=== PATIENT | female | born 1940 | race Caucasian/White ===

== ENCOUNTER → 2020-01-26 | Outpatient (CLI) | payer OTHER, SELFPAY ==
[2020-01-26 15:20] LABS: Absolute Lymphocyte Count 2.29 X10^3/uL (0.83-4.51); Absolute Neutrophil Count 4.2 X10^3/uL (2.0-7.7); Basophil# 0.05 X10^3/uL; Basophil% 0.7 % (0-1); Eosinophil# 0.25 X10^3/uL; Eosinophils% 3.3 % (0-5); Hematocrit 36.4 % (37-47); Hemoglobin 11.9 g/dL (12.0-15.0); Lymphocyte # 2.29 X10^3/ul (4.0); Lymphocyte % 30.4 % (19-41); Mean Corp Hgb Conc 32.7 g/dL (32-36); Mean Corpuscular Hgb 31.2 pg (27.0-32.0); Mean Corpuscular Volume 95.5 fL (81-99); Mean Platelet Vol. 9.2 fl (6.2-12.0); Monocyte# 0.69 X10^3/uL; Monocyte% 9.2 % (0-10); NRBC Flagged by Analyzer 0 % (0-5); Neutrophil # 4.22 X10^3/uL (2.7-7.7); Platelet Count 378 K/mm3 (150-450); RBC Distribution Width SD 48.9 fl (35.1-43.9); Red Blood Count 3.81 M/mm3 (4.2-5.4); White Blood Count 7.5 K/mm3 (4.4-11.0)
[2020-01-26 15:58] LABS: ALB/GLOB Ratio 0.8 RATIO (0.9-2.4); AST(SGOT) 16 U/L (15-37); Alanine Aminotransfer ALT/SGPT 21 U/L (13-56); Albumin, Serum 3.3 g/dL (3.2-5.0); Alkaline Phosphatase 44 U/L (45-117); Anion Gap 7 (5-15); BUN 16 mg/dL (7-18); BUN/Creat Ratio 20.1 RATIO (10-20); Chloride 100 mmol/L (98-107); EST Glomerular Filtration Rate 73 mL/min (>60); Est Glom Filt Rate - Afr Amer 89 mL/min (>60); Globulin 4.4 g/dL (2.2-4.2); Glucose 87 mg/dL (74-106); Potassium 4.2 mmol/L (3.5-5.1); Protein, Total 7.7 g/dL (6.4-8.2); Sodium Level 137 mmol/L (136-145); Thyroid Stim Hormone (TSH) 1.45 uIU/mL (0.358-3.74)
[2020-01-28 09:40] LABS: Myoglobin, Serum 29 ng/mL (25-58)
[2020-01-28 16:08] LABS: Creatine Kinase MB 0 % (0-3); Creatine Kinase MM 100 % (97-100); Macro I 0 % (Not Observed); Macro II 0 % (Not Observed)
[2020-01-28 17:49] LABS: Creatine Kinase BB 0 % (0); Creatine Kinase,Total,Serum 42 U/L (26-161)
== END | disposition home or self-care (01) ==
LOC: LABSPEC 15:11
PROVIDERS: PCP Internal Medicine; Referring Provider Nurse Practitioner; Visit Provider Nurse Practitioner
DX: I10 Essential (primary) hypertension (principal)
CPT/HCPCS: 80053; 82550; 82552; 83874; 84443; 84484; 85025

== ENCOUNTER 2020-01-27 16:41 | Emergency (ER) | payer OTHER, SELFPAY ==
[2020-01-27 16:43] VITALS: BP 151/64; PULSE 70; RESP 15; TEMP 36.6; O2SAT 97; BMI 27.3
--- NOTE | 2020-01-27 17:05 | CT_ITS ---
STUDY: CT BRAIN WITHOUT CONTRAST REASON FOR EXAM: Female, 79 years old. PT STATED HEADACHE TODAY RADIATION DOSAGE (If Supplied By Facility): CTDIvol = ( 44.99 ) mGy, DLP = ( 762.36 ) mGycm TECHNIQUE: Transaxial CT imaging of the brain was performed without administration of intravenous contrast material. Individualized dose optimization techniques were used for this CT. COMPARISON: No relevant priors. FINDINGS: Normal soft tissue structures. Normal calvarium. There is moderate cerebral atrophy with widening of the extra-axial spaces and ventricular dilatation. There are areas of decreased attenuation within the white matter tracts of the supratentorial brain, consistent with microvascular disease changes. Normal basal ganglia and thalami. Normal brainstem. Normal cerebellum. There is no intracranial hemorrhage. There are no findings of an acute ischemic infarction. There is mucoperiosteal inflammatory disease of the paranasal sinuses consistent with mild chronic sinusitis. CT/Brain/Head without Contrast IMPRESSION: Chronic involutional changes of the brain. Electronically Signed: Cameron Jones MD at 17:56 EDT , Service support ,
--- NOTE | 2020-01-27 17:09 | ED.VIS.GEN ---
History of Present Illness Chief Complaint: Hypertension Informant: Patient Narrative: Patient presents the emergency department elevated blood pressure and headache. Patient states for about 1 week she has had a frontal headache. She knows that her blood pressure has been up and down. She states that yesterday she was seen by her primary care physician and her lisinopril was increased to 40 mg a day. She states there was an EKG performed yesterday that she states was fine. She took that dose this morning. She states that they called her today and she states her blood pressure continued to be around 200 so they decided to send her to the emergency room. No chest pain or shortness of breath. No leg swelling. In addition to lisinopril she also takes propranolol 60 mg daily. Past Medical History - Allergies and Home Meds Allergies/Adverse Reactions: Allergies Penicillins [PCN] Allergy (Verified 01/27/20 16:42) Hives Primary Care Physician: Nanci Mead DO [Primary Care Provider] - (Call the office tomorrow.) Surgical History: - - BL vein LE stripping, hysterectomy, T+A. Smoking Status: Never smoker - Family History Maternal Family History: Reports: Heart Disease, Hypertension Paternal Family History: Reports: No pertinent history Review of Systems General: Denies: Chills, Fever, Sweats Eyes: Denies: Visual changes - bilaterally, Diplopia ENT: Denies: Rhinorrhea, Sore throat Cardiovascular: Denies: Chest pain, Palpitations Respiratory: Denies: Dyspnea, Cough, Dyspnea on exertion Gastrointestinal: Denies: Abdominal pain, Nausea, Vomiting, Diarrhea, Melena, Hematochezia Genitourinary: Denies: Dysuria, Hematuria, Frequency Musculoskeletal: Denies: Back pain, Extremity Pain Skin: Denies: Rash, Wounds Neurological: Reports: Headache. Denies: Weakness, Numbness Physical Exam Vital Signs/Narrative: Vital Signs Temp Pulse Resp BP Pulse Ox 01/27/20 16:43 97.9 F 70 15 151/64 H 97 General: Well nourished, Well developed, No Acute Distress Head: Normocephalic, Atraumatic Eyes: Perrl, EOMI ENT: Moist mucous membranes, No rhinorrhea Neck: Supple, Nontender Cardiovascular: Regular rate, Regular rhythm, No murmurs Respiratory: No distress, CTA bilaterally, Chest nontender Abdomen: Soft, Nontender, Nondistended, Normal bowel sounds Back: Nontender, Normal Inspection Extremities: Nontender, No edema Skin: Normal color, No rash Neurological: Alert, Oriented x3, Cranial nerves II-XII grossly intact, Normal Strength, Normal Sensation Psychological: Normal affect, Normal Mood ED Disposition - Plan for ED Patient: Disposition: Home or Assisted Living Diagnosis: Accelerated hypertension Instructions: ED High Blood Pressure Established Out of Control Prescriptions: Amlodipine [Norvasc] 5 mg PO DAILY #30 tab Transmission Status: Received by [facility] Amlodipine [Norvasc] 5 mg PO DAILY #30 tab Transmission Status: Received by [facility] Referrals: Nanci Mead DO [Primary Care Provider] - (Call the office tomorrow.)
[2020-01-27 17:16] VITALS: BP 196/86
[2020-01-27] MEDS: Acetaminophen 500 MG Tablet 1000 MG PO (17:19)
[2020-01-27 17:34] VITALS: BP 170/90
[2020-01-27 17:50] LABS: Absolute Lymphocyte Count 2.59 X10^3/uL (0.83-4.51); Absolute Neutrophil Count 5.5 X10^3/uL (2.0-7.7); Basophil# 0.05 X10^3/uL; Basophil% 0.6 % (0-1); Eosinophil# 0.17 X10^3/uL; Eosinophils% 1.9 % (0-5); Hematocrit 36.6 % (37-47); Hemoglobin 11.7 g/dL (12.0-15.0); Lymphocyte # 2.59 X10^3/ul (4.0); Lymphocyte % 28.9 % (19-41); Mean Corpuscular Hgb 30.4 pg (27.0-32.0); Mean Corpuscular Volume 95.1 fL (81-99); Monocyte# 0.67 X10^3/uL; Monocyte% 7.5 % (0-10); NRBC Flagged by Analyzer 0 % (0-5); Neutrophil # 5.47 X10^3/uL (2.7-7.7); Platelet Count 371 K/mm3 (150-450); RBC Distribution Width CV 14.2 % (11.6-14.6); RBC Distribution Width SD 49.2 fl (35.1-43.9); Red Blood Count 3.85 M/mm3 (4.2-5.4)
[2020-01-27 18:07] LABS: Anion Gap 10 (5-15); BUN 22 mg/dL (7-18); BUN/Creat Ratio 26.3 RATIO (10-20); Calcium,Total 9.2 mg/dL (8.5-10.1); Chloride 100 mmol/L (98-107); Creatinine, Serum 0.84 mg/dL (0.55-1.02); EST Glomerular Filtration Rate 70 mL/min (>60); Est Glom Filt Rate - Afr Amer 84 mL/min (>60); Estimated Creatinine Clearance 51.08 ml/min; Glucose 101 mg/dL (74-106); Potassium 4.3 mmol/L (3.5-5.1); Sodium Level 137 mmol/L (136-145)
[2020-01-27 18:17] VITALS: BP 180/78; PULSE 68; RESP 16; O2SAT 97
[2020-01-27 19:01] VITALS: BP 191/84; PULSE 64; RESP 18; O2SAT 97
[2020-01-27] MEDS: amLODIPine 5 MG Tablet PO (19:16)
== END 2020-01-27 19:43 | disposition home or self-care (01) ==
PROVIDERS: Emergency Provider Emergency Medicine; PCP Internal Medicine
DX: I10 Essential (primary) hypertension (principal); Z79.899 Other long term (current) drug therapy
CPT/HCPCS: 70450; 80048; 85025; 99285

== ENCOUNTER 2021-08-15 13:25 | Observation (INO) | payer OTHER, SELFPAY ==
[2021-08-15 13:26] VITALS: BP 192/121; PULSE 88; RESP 20; TEMP 36.8; O2SAT 99; BMI 31.4
--- NOTE | 2021-08-15 13:29 | ED.RN ---
WHEN GOING BACK TO THE ROOM PT STATES MY HEAD FEELS WOOZY. THAT JUST STARTED THIS MORNING
[2021-08-15 13:34] VITALS: BMI 32.1
--- NOTE | 2021-08-15 14:15 | EKG12_ITS ---
Test Reason : Blood Pressure : / mmHG Vent. Rate : 073 BPM Atrial Rate : 073 BPM P-R Int : 156 ms QRS Dur : 092 ms QT Int : 390 ms P-R-T Axes : 000 032 053 degrees QTc Int : 429 ms Normal sinus rhythm Normal ECG Confirmed by ZOE GARCIA, CAS ([id number]), news copy editor TREASURE JETT ([id number]) on 08/17/2021 9:55:14 AM Referred By: CHAYO Confirmed By:CAS ENRIQUEZ MD
--- NOTE | 2021-08-15 14:15 | CT_ITS ---
STUDY: CT BRAIN WITHOUT CONTRAST REASON FOR EXAM: Female, 80 years old. Headache, HTN -- TIA symptoms 08/12 RADIATION DOSAGE (If Supplied By Facility): CTDIvol = ( 44.99 ) mGy, DLP = ( 779.24 ) mGycm TECHNIQUE: Transaxial CT imaging of the brain was performed without administration of intravenous contrast material. Individualized dose optimization techniques were used for this CT. COMPARISON: Comparison is made with prior study dated 01/27/2020. FINDINGS: Normal soft tissue structures. Normal calvarium. There is moderate cerebral atrophy with widening of the extra-axial spaces and ventricular dilatation. There are areas of decreased attenuation within the white matter tracts of the supratentorial brain, consistent with microvascular disease changes. Normal basal ganglia and thalami. Normal brainstem. Normal cerebellum. There is no intracranial hemorrhage. There are no findings of an acute ischemic infarction. Atherosclerotic plaque formation of the cavernous portions of the internal carotid arteries bilaterally. Partial opacification of the anterior aspect of the ethmoid sinuses likely more prominent on the left side. CT/Brain/Head without Contrast IMPRESSION: Chronic involutional changes of the brain. Electronically Signed: Juan Manuel Olivas MD at 15:30 EST , Service support ,
--- NOTE | 2021-08-15 14:16 | EX.ED.DYSGE1 ---
HPI History of Present Illness Chief Complaint: Neuro S/Sx Informant: patient Onset/Context/Timing Onset: Days Narrative Narrative: Patient presents today secondary to hypertension and headache. She states symptoms for concerned her started on Sunday, the . While lying in bed reading a book she had a sudden onset of headache followed by left-sided weakness, paresthesias, slurred speech. Those symptoms lasted about 15 minutes and spontaneously resolved. Her blood pressures remained elevated throughout the weekend and if the member told her to take twice her normal dose of propranolol to help with her blood pressure. She states she woke this morning with a worsened headache and blood pressure was noted to be significantly elevated. [facility] Medical History Diabetes mellitus, type II HLD (hyperlipidemia) Hypertension Home Medications aspirin 81 mg PO DAILY@0800 tab.chew 01/24/17 [Rx Last Taken Unknown] calcium carbonate [Oyster Shell Calcium 500] 1,000 mg PO DAILY@0800 tab 01/24/17 [Rx Last Taken Unknown] cholecalciferol (vitamin D3) [Vitamin D3] 1,000 unit PO DAILYCM tab 01/24/17 [Rx Last Taken Unknown] donepezil 5 mg PO QHS tab 01/24/17 [Rx Last Taken Unknown] duloxetine 60 mg PO DAILY 30 Days 01/24/17 [Rx Last Taken Unknown] propranolol 60 mg PO DAILY capsule 01/24/17 [Rx Last Taken Unknown] amlodipine 5 mg PO DAILY #30 tab 01/27/20 [Rx Last Taken Unknown] amlodipine 5 mg PO DAILY #30 tab 01/27/20 [Rx Last Taken Unknown] ibuprofen 200 mg PO DAILY 01/27/20 [History Last Taken Unknown] lisinopril 40 mg PO DAILY 01/27/20 [History Last Taken Unknown] metformin 1,000 mg PO BIDCM 01/27/20 [History Last Taken Unknown] nortriptyline 50 mg PO QHS 01/27/20 [History Last Taken Unknown] Allergy/AdvReac Type Severity Reaction Status Date / Time Penicillins [PCN] Allergy Hives Verified 08/15/21 13:31 Social History Smoking Status: Never smoker ROS ROS ED Constitutional Constitutional ED: Denies chills or fever(s) Eyes Eyes: Denies change in vision ENT ENT ED: Denies sore throat Cardiovascular Cardiovascular: Denies chest pain Respiratory/Chest Respiratory/Chest: Denies cough or dyspnea Gastrointestinal Gastrointestinal: Denies abdominal pain, diarrhea, nausea or vomiting Genitourinary Genitourinary ED: Denies dysuria Musculoskeletal Musculoskeletal: Denies back pain or neck pain Integumentary Denies rash Neurologic Neurologic: Reports headache(s) and other Details: Weakness and paresthesias present on 08/12, none today Psychiatric Psychiatric: Denies anxiety or depression Allergic/Immunologic Allergic/Immunologic ED: Denies urticaria EXAM Physical Exam Const Vital Signs: 08/15/21 13:26 Temperature 98.3 F Temperature Source Temporal Pulse Rate 88 Respiratory Rate 20 H Blood Pressure 192/121 H Blood Pressure Mean 144 Pulse Ox 99 Oxygen Delivery Method Room Air Positive well nourished and well developed General Appearance ED: well developed HEENT Reports moist mucous membranes Eyes PERRL and EOMs intact bilaterally Neck supple Chest Wall inspection of chest normal and palpation of chest normal Resp normal respiratory effort and clear to auscultation bilaterally Cardio regular rate and regular rhythm GI normal to inspection, nondistended, normoactive bowel sounds and non-tender Palpation: soft Extremity normal to inspection Neuro oriented x3, CN's II-XII intact bilaterally and no sensory deficits noted Neuro Narrative: NIH equals 0 Sensorium / Orientation: alert Motor Exam: strength 5/5 throughout Skin no rashes or lesions noted MDM MDM MDM Narrative Medical decision making narrative: Lab work, EKG, head CT obtained Lab Data Attestation: I reviewed the patient's lab results. Labs: Laboratory Results - last 24 hr 08/15/21 08/15/21 08/15/21 13:40 13:40 13:40 WBC 8.3 RBC 3.86 L Hgb 11.8 L Hct 35.9 L MCV 93.0 MCH 30.6 MCHC 32.9 RDW Std Deviation 47.4 H RDW Coeff of Maylin 13.9 Plt Count 372 MPV 9.2 Immature Gran % (Auto) 0.400 Neut % (Auto) 55.2 Lymph % (Auto) 30.6 [place] % (Auto) 10.3 H Eos % (Auto) 2.9 Baso % (Auto) 0.6 Absolute Neuts (auto) 4.6 Absolute Lymphs (auto) 2.54 Nucleated RBC % 0 PT 12.1 INR 1.0 APTT 27.5 Sodium 134 L Potassium 4.4 Chloride 99 Carbon Dioxide 28.0 Anion Gap 7 BUN 21 H Creatinine 0.83 Estim Creat Clear Calc 48.92 Est GFR (MDRD) Af Amer 84 Est GFR (MDRD) Non-Af 70 BUN/Creatinine Ratio 25.2 H Glucose 94 Calcium 8.9 Radiography Chest X-Ray - ED: 1 View, Read by ED Physician and Chronic Changes Diagnostic Testing: Clinical Impression(s) from Imaging Studies Brain CT 08/15/21 14:15 IMPRESSION: Chronic involutional changes of the brain. Electronically Signed: Juan Manuel Olivas MD at 15:30 EST , Service support , Chest X-Ray 08/15/21 14:55 IMPRESSION: No acute abnormality is seen. Electronically Signed: Juan Manuel Olivas MD at 15:15 EST , Service support , EKG Initial EKG: Attestation: I personally reviewed and interpreted this EKG as follows: Interpretation: Sinus Rhythm (Sinus at 73 with no acute ischemia.) Treatment and Re-Evaluation Comments:: Patient's initial blood pressure is 191/121. Repeat pressure is 166/88. Patient is given Tylenol for headache. Lab work reviewed and largely unremarkable. Chest x-ray clear. Head CT reveals no acute findings. Patient certainly sounds like she had a significant TIA 2 days ago. I think she would benefit from observation overnight for stabilization of her blood pressure as well as MRI and any stroke factor risk modification that we could offer. She is in agreement with this plan. I will speak with hospitalist. Discharge Plan Triage Chief Complaint: Neuro S/Sx ED Provider: Tg Adrian Dx/Rx/DC Orders Clinical Impression: Hypertension, Brain TIA Prescriptions: No Action donepezil 5 MG tablet 5 mg PO QHS RF: 0 propranolol 60 MG capsule 60 mg PO DAILY RF: 0 calcium carbonate [Oyster Shell Calcium 500] 500 MG tablet 1,000 mg PO DAILY@0800 RF: 0 aspirin 81 MG Tab.Chew 81 mg PO DAILY@0800 RF: 0 cholecalciferol (vitamin D3) [Vitamin D3] 1,000 UNIT tablet 1,000 unit PO DAILYCM RF: 0 duloxetine 60 MG capsule 60 mg PO DAILY 30 Days RF: 0 ibuprofen 200 MG capsule 200 mg PO DAILY RF: 0 nortriptyline 50 MG capsule 50 mg PO QHS RF: 0 metformin 500 MG tablet 1,000 mg PO BIDCM RF: 0 lisinopril 20 MG tablet 40 mg PO DAILY RF: 0 amlodipine 5 MG tablet 5 mg PO DAILY Qty: 30 RF: 0 amlodipine 5 MG tablet 5 mg PO DAILY Qty: 30 RF: 0 Primary Care Provider: Nanci Mead Referrals: Nanci Mead DO [Primary Care Provider] - Disposition Disposition: Acute Care Hospital [facility]
[2021-08-15 14:27] LABS: Absolute Lymphocyte Count 2.54 X10^3/uL (0.83-4.51); Absolute Neutrophil Count 4.6 X10^3/uL (2.0-7.7); Basophil# 0.05 X10^3/uL; Basophil% 0.6 % (0-1); Eosinophil# 0.24 X10^3/uL; Eosinophils% 2.9 % (0-5); Hematocrit 35.9 % (37-47); Hemoglobin 11.8 g/dL (12.0-15.0); Lymphocyte # 2.54 X10^3/ul (0.83-4.51); Lymphocyte % 30.6 % (19-41); Mean Corp Hgb Conc 32.9 g/dL (32-36); Mean Corpuscular Hgb 30.6 pg (27.0-32.0); Mean Platelet Vol. 9.2 fl (6.2-12.0); Monocyte# 0.85 X10^3/uL; Monocyte% 10.3 % (0-10); NRBC Flagged by Analyzer 0 % (0-5); Neutrophil # 4.58 X10^3/uL (2.7-7.7); Neutrophil % 55.2 % (47-70); Platelet Count 372 K/mm3 (150-450); RBC Distribution Width CV 13.9 % (11.6-14.6); RBC Distribution Width SD 47.4 fl (35.1-43.9); Red Blood Count 3.86 M/mm3 (4.2-5.4); White Blood Count 8.3 K/mm3 (4.4-11.0)
[2021-08-15 14:33] LABS: Anion Gap 7 (5-15); BUN 21 mg/dL (7-18); BUN/Creat Ratio 25.2 RATIO (10-20); Calcium,Total 8.9 mg/dL (8.5-10.1); Chloride 99 mmol/L (98-107); Creatinine, Serum 0.83 mg/dL (0.55-1.02); EST Glomerular Filtration Rate 70 mL/min (>60); Est Glom Filt Rate - Afr Amer 84 mL/min (>60); Estimated Creatinine Clearance 48.92 ml/min; Glucose 94 mg/dL (74-106); Partial Thromboplast Time 27.5 Seconds (24.1-36.2); Potassium 4.4 mmol/L (3.5-5.1); Prothrombin Time (Protime)PT. 12.1 SECONDS (11.7-14.9); Sodium Level 134 mmol/L (136-145)
--- NOTE | 2021-08-15 14:55 | RAD_ITS ---
STUDY: X-RAY CHEST REASON FOR EXAM: Female, 80 years old. CP TECHNIQUE: Single AP portable view of the chest. COMPARISON: Comparison is made with prior study dated 01/16/2017. FINDINGS: EKG electrodes are seen. The lungs are clear and expanded. There is no demonstrated pleural abnormality. Normal size heart. Calcified right paratracheal lymph nodes. Normal visualized pulmonary arteries. There is atherosclerotic calcification of the aortic arch with tortuosity. There are diffuse degenerative changes of the visualized thoracic spine. There is degenerative osteoarthritis of the bilateral shoulders. There is no demonstrated abnormality of the visualized soft tissue structures of the upper abdomen. RAD/Chest 1 View (Portable) IMPRESSION: No acute abnormality is seen. Electronically Signed: Juan Manuel Olivas MD at 15:15 EST , Service support ,
[2021-08-15] MEDS: Acetaminophen 500 MG Tablet 1000 MG PO (15:54)
--- NOTE | 2021-08-15 16:12 | NURSING ---
PCU JAM OBS TIA, HTN
[2021-08-15 16:15] VITALS: BP 166/88; PULSE 73; RESP 15; TEMP 36.8; O2SAT 96
--- NOTE | 2021-08-15 17:11 | ECHOD_ITS ---
Reason For Study: TIA/CVA Procedure This was a 2D Doppler, Color Flow transthoracic echocardiogram. The study was technically difficult. Exam performed portable in patient room. Left Ventricle Based upon the 2D echocardiographic images obtained there appears to be grossly normal left ventricular size, wall motion, and systolic function. The estimated ejection fraction is 55 %. No evidence for diastolic dysfunction. Right Ventricle Based upon the 2D echocardiographic images obtained there appears to be grossly normal right ventricular size and systolic function. Atria Normal left atrium. Normal right atrium. No doppler evidence for ASD. Bubble contrast study negative for right to left interatrial shunt. Mitral Valve There is mild mitral annular calcification. Mild focal mitral valve calcification of the anterior leaflet. Trivial mitral valve insufficiency. Tricuspid Valve The tricuspid valve is not well visualized. Trivial tricuspid valve insufficiency. Unable to estimate RV systolic pressure/pulmonary artery pressure due to technically difficult study. Aortic Valve The aortic valve is not well visualized. Trivial aortic valve insufficiency. Pulmonic Valve The pulmonic valve is not well visualized. Great Vessels Normal sized aortic root. Pericardium/Pleural No pericardial effusion. Medication Performed a rapid injection of agitated mix of 9 cc saline and 1cc air to assess for atrial septal defect. MMode/2D Measurements & Calculations LVIDd: 5.0 cm IVSd: 1.1 cm Ao root diam: 3.1 cm LVIDs: 3.1 cm LVPWd: 1.0 cm RVDd: 2.7 cm FS: 38.4 % LAV(MOD-bp): 41.2 ml LA A4 area: 16.3 cm2 LA dimension(2D): 3.7 cm LAV(MOD-bp) Indexed: 21.1 ml/m2 LAV(MOD-sp2): 38.7 ml LAV(MOD-sp4): 44.5 ml Time Measurements MV dec time: 0.35 sec Doppler Measurements & Calculations MV E max andrea: 45.7 cm/sec Lat Peak E' Andrea: 6.3 cm/sec Med Peak E' Andrea: 5.7 cm/sec MV A max andrea: 93.9 cm/sec E/E' lat: 7.3 E/E' med: 8.0 MV E/A: 0.49 Ao V2 max: 93.1 cm/sec AI max andrea: 349.4 cm/sec LV V1 max: 87.3 cm/sec Ao max P.5 mmHg AI max P.8 mmHg LV V1 max P.0 mmHg AI dec slope: 144.4 cm/sec2 AI P1/2t: 708.9 msec ECHO/Echo Complete Interpretation Summary The study was technically difficult. Based upon the 2D echocardiographic images obtained there appears to be grossly normal left ventricular size, wall motion, and systolic function. The estimated ejection fraction is 55 %. There is mild mitral annular calcification. Mild focal mitral valve calcification of the anterior leaflet. Trivial mitral valve insufficiency. Trivial tricuspid valve insufficiency. Trivial aortic valve insufficiency. Unable to estimate RV systolic pressure/pulmonary artery pressure due to techni tim difficult study. No evidence for diastolic dysfunction. Bubble contrast study negative for right to left interatrial shunt. Ordering Physician: Nathalie Pearson Referring Physician: Nanci Mead Performed By: Ruth Hurtado, COYCS, RVT
--- NOTE | 2021-08-15 17:11 | CT_ITS ---
We are attempting to reach an attending provider to discuss findings. An addendum with communication details will be sent when the communication is complete. INDICATION: Neuro deficit, acute, stroke suspected EXAMINATION: CT BRAIN WITH CONTRAST TECHNIQUE: Noncontrast axial images were obtained of the brain. Subsequently, routine carotid CT angiogram protocol was performed without and with IV contrast. In addition, images were obtained of the [place]. NASCET criteria using the distal ICAs for comparison were used for evaluation of stenoses. 3D reconstructions were reviewed. A radiation dose optimization technique was used for this scan. IV Contrast dosage and agent: 100 mL''s Omnipaque 370 Radiation Dose (provided by facility) CTDIvol (22.2 ) mGy, DLP ( 690.20) mGy-cm COMPARISON: Noncontrast head CT of the same date FINDINGS: CTA [place]: PETROUS AND CAVERNOUS CAROTID ARTERIES: Normal appearance of the petrous and cavernous carotid vessels bilaterally. No focal stenosis noted. SUPRACLINOID CAROTID ARTERIES: Normal appearance the supraclinoid carotid vessels bilaterally, the visualized ophthalmic arteries have normal appearance. Minimal scattered calcifications are present. ANTERIOR CEREBRAL AND A- COMM: Normal appearance the proximal and distal segments of the anterior cerebral circulation bilaterally. MIDDLE CEREBRAL ARTERIES: Normal appearance the proximal and distal segments of the middle cerebral circulation bilaterally. Normal appearance of the M4 cortical distribution bilaterally. INTRACRANIAL VERTEBRAL ARTERIES AND BASILAR ARTERY: Normal appearance of the intracranial course of the vertebral arteries bilaterally, normal appearance of basilar artery to the level of the bifurcation. POSTERIOR CEREBRAL ARTERIES: Normal appearance proximal distal segments of posterior cerebral circulation bilaterally. DURAL SINUSES: Normal, no filling defects noted CT HEAD: The cerebral parenchyma, ventricular system and gyral pattern have normal configuration. No areas of abnormal contrast enhancement. No evidence of hemorrhage given the limitation of postcontrast imaging. Diffuse involutional changes and chronic deep white matter disease are again noted CTA Neck: TECHNIQUE: CTA examination of the neck obtained with standard protocol including axial postcontrast imaging with additional planar and three-dimensional reconstructions. Aortic arch: [Normal appearance of the aortic arch and origin the great vessels.] Moderate calcification and soft plaque at the level of the origin of the LEFT subclavian artery without stenosis noted. Right carotid system: Soft and calcified plaque at the level of the RIGHT carotid bulb with findings consistent with a mild (less than 50%) narrowing. No ulceration noted. Remaining RIGHT ECA ICA and CCA have normal appearance the level of the skull base. Left carotid system: Scattered calcifications at the level of the LEFT carotid bifurcation without stenosis occlusion or luminal irregularity. Normal appearance the remaining LEFT ECA ICA and CCA to the level of skull base. Vertebral arteries: There is normal appearance of the vertebral arteries bilaterally without focal stenosis or occlusion. Airway and soft tissues of the neck: There is normal appearance of the musculofascial planes of suprahyoid and infrahyoid neck. Normal appearance of the visualized airway. Normal appearance the visualized thyroid without masses or nodules noted. Cervical spine: Diffuse cervical spondylosis without fracture destructive bony process No focal stenosis or occlusion involving the cervical spinal canal. CT/STROKE CTA Head AND Neck W/Con IMPRESSION: 1. Scattered intracranial calcifications noted. No evidence of focal stenosis occlusion or aneurysmal dilatation. 2. No CTA evidence LVO. 3. CTA examination of the neck documents soft and calcified plaque at the level of the origin of the LEFT subclavian artery without stenosis. 4. There is a mild (less than 50%) narrowing of the RIGHT carotid bifurcation and RIGHT carotid bulb. 5. Minimal calcification involving the LEFT carotid bulb without stenosis or occlusion. 6. Normal appearance of the cervical course of the vertebral vessels bilaterally. Calcifications involving the cavernous carotid vessels bilaterally Electronically Signed: Tra Erwin MD at 17:57 EST Tel , Service support ,
--- NOTE | 2021-08-15 17:11 | MRI_ITS ---
STUDY: MRI BRAIN WITHOUT CONTRAST REASON FOR EXAM: Female, 80 years old. tia TECHNIQUE: Standardized multiplanar fat and water weighted pulse sequences were obtained. MRI examination brain obtained with multiplanar multiecho noncontrast imaging. COMPARISON: CT examination of 08/15/2021 FINDINGS: HEMISPHERES, CEREBELLUM AND BRAINSTEM: 1. The cerebral parenchyma, ventricular system, subarachnoid spaces have normal configuration. Diffuse involutional changes and extensive chronic deep white matter disease is noted. There is an area of remote lacunar infarct in the LEFT posterior thalamus. 2. There is a normal gyral pattern. There is normal brown/white differentiation. No midline shift.. 3. No intraparenchymal mass, hemorrhage, or acute territorial infarct. 4. The cerebellum, brainstem, basilar and suprasellar cisterns have normal configuration. Moderate chronic white matter changes are present within the pontine tegmentum.. No Chiari malformation. PITUITARY: Infundibulum and pituitary have normal configuration. Midline structures appear normal. CSF SPACES: Appropriate for age. No hydrocephalus. Basal cisterns are patent. VESSELS: 1. There are normal flow voids noted in the great vessels at the skull base ORBITS AND PARANASAL SINUSES: 1. Both globes, extraocular muscles, optic nerves and retrobulbar fat appear unremarkable. 2. Chronic mucosal thickening present within the ethmoid complexes and frontal sinuses. BONY ELEMENTS: Bony elements of the cranial vault, facial skeleton and skull base have normal appearance. SCALP AND SOFT TISSUES: Normal appearance of the soft tissues of the scalp and the visualized face OTHER: None MRI/Brain without Contrast IMPRESSION: 1. 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 2. 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 Extensive dilated perivascular spaces noted within the basal ganglia. 3. No mass, hemorrhage, or acute territorial infarct. 4. Chronic-appearing ethmoid sinus because subtle thickening. Electronically Signed: Tra Erwin MD at 22:11 EST Tel , Service support ,
[2021-08-15 17:42] LABS: Thyroid Stim Hormone (TSH) 1.66 uIU/mL (0.358-3.74)
[2021-08-15 18:00] VITALS: BP 199/85; PULSE 66; RESP 16; TEMP 36.8; O2SAT 99
--- NOTE | 2021-08-15 18:01 | PCS.PANDOC ---
PANDEMIC DOCUMENTATION INITIATED: Date: 08/15/2021 Time: 1800
[2021-08-15 18:24] VITALS: BMI 30.4
--- NOTE | 2021-08-15 18:55 | PCM.HP.STD ---
HPI - General General Date of Admission: 08/15/21 Date of Service: 08/15/21 Chief Complaint: Left-sided tingling numbness/weakness HPI Narrative EMILY JIANG, is a 80 F who presented to the emergency department at [facility] on 08/15/2021 with a chief complaint of headache. She states her symptoms actually started on Sunday the in the evening. She was lying in bed while reading a book and suddenly had an onset of headache and noticed that she dropped a book and had left-sided upper extremity tingling and numbness with weakness, left leg tingling, and speech changes. The symptoms lasted for approximately 15 minutes and then resolved. She and her continue to monitor her blood pressures through the weekend and they remained elevated and therefore they presented to the hospital today. She has had no recurrence of her neurological deficits that she had previously but she does have a past medical history significant for diabetes, hyperlipidemia, and hypertension. She does take baby aspirin daily at home. She has been compliant with her home medications and states she has missed no blood pressure medications. She still has a mild headache and her initial blood pressures were elevated in the emergency department but on my eval they had improved without any treatment. In the emergency department she was afebrile with a normal pulse but her initial blood pressure was noted to be 192/121 her respiratory rate was normal and her oxygen saturations were 96% on room air. Her blood pressure did improve without any treatment and was in the 140s over 90s upon my exam. Her CBC was overall unimpressive. Her coags were normal. Her BMP showed mild hypokalemia with a potassium of 134 but the rest of her labs were fairly unremarkable. Her serum glucose was 94 on admission. Her TSH was 1.66. A CT of her brain was performed and showed chronic involutional changes of her brain. A chest x-ray was obtained and showed no acute abnormalities. Her EKG showed no ST-T wave changes consistent with acute ischemia. Given her symptoms and her blood pressure elevation it was felt prudent to admit her to the hospital and work-up for TIA. [facility] Medical History Chronic pain Diabetes mellitus, type II HLD (hyperlipidemia) Hypertension Migraines Home Medications aspirin 81 mg PO DAILY@0800 tab.chew 01/24/17 [Rx Last Taken 08/15/21] donepezil 5 mg PO QHS tab 01/24/17 [Rx Last Taken 08/14/21] duloxetine 60 mg PO DAILY 30 Days 01/24/17 [Rx Last Taken 08/15/21] propranolol 60 mg PO DAILY capsule 01/24/17 [Rx Last Taken 08/15/21] amlodipine 5 mg PO DAILY #30 tab 01/27/20 [Rx Last Taken 08/15/21] ibuprofen 200 mg PO DAILY 01/27/20 [History Last Taken Unknown] metformin 1,000 mg PO BIDCM 01/27/20 [History Last Taken 08/15/21] nortriptyline 50 mg PO QHS 01/27/20 [History Last Taken 08/14/21] lisinopril 40 mg PO DAILY 08/15/21 [History Last Taken 08/15/21] Allergy/AdvReac Type Severity Reaction Status Date / Time Penicillins [PCN] Allergy Hives Verified 08/15/21 13:31 no significant family history Surgical History History of appendectomy Social History (Updated 08/15/21 @ 19:[address] Nathalie Pearson DO) Smoking Status: Never smoker alcohol intake: never substance use type: does not use ROS Constitutional Constitutional: Denies anorexia, change in weight, chills, fatigue, fever(s), malaise, night sweats, weakness or other Eyes Eyes: Denies blurry vision, change in eye color, change in vision, discharge from eye(s), double vision, erythema, eye pain, loss of vision or other ENT HEENT: Reports headache(s); Denies abnormal hearing, dysphagia, ear pain, epistaxis, hearing loss, nasal congestion, nasal discharge, post nasal drip, sinus pressure, sore throat or other Cardiovascular Cardiovascular: Denies chest pain, claudication, dyspnea on exertion, edema, lightheadedness, orthopnea, palpitations, paroxysmal nocturnal dyspnea, rapid heart rate, syncope or other Respiratory/Chest Respiratory/Chest: Denies cough, dyspnea, excessive phlegm production, hemoptysis, productive cough, shortness of breath at rest, shortness of breath with exertion, wheezing or other Gastrointestinal Gastrointestinal: Denies abdominal pain, coffee ground emesis, constipation, diarrhea, dyspepsia, hematemesis, hematochezia, loose stools, melena, nausea, vomiting or other Genitourinary Genitourinary: Denies burning urination, difficulty urinating, dysuria, hematuria, nocturia, urinary frequency, urinary hesitancy, urinary incontinence, urinary urgency or other Musculoskeletal Musculoskeletal: Denies arthralgias, back pain, joint pain, joint stiffness, joint swelling, myalgias, neck pain or other Neurologic Neurologic: Denies abnormal gait, abnormal speech, confusion, disequilibrium, dizziness, focal weakness, headache(s), numbness, paresthesias, seizure-like activity, seizures, syncope, tingling, tremor(s) or other Psychiatric Psychiatric: Denies anxiety, depression, homicidal ideation, suicidal ideation or other Endocrine Endocrinology: Denies change in body appearance, cold intolerance, excessive sweating, heat intolerance, polydipsia, polyuria or other Hematologic/Lymphatic Hematologic/Lymphatic: Denies anemia, easy bleeding, easy bruising, lymphadenopathy or other Allergic/Immunologic Allergic/Immunologic: Denies rhinitis, hives, eczemia, asthma or other Vital Signs Vital Signs Vital Signs: 08/15/21 13:26 08/15/21 16:15 08/15/21 18:00 Temperature 98.3 F 98.2 F 98.3 F Temperature Source Temporal Oral Oral Pulse Rate 88 73 66 Respiratory Rate 20 H 15 16 Blood Pressure 192/121 H 166/88 H 199/85 H Blood Pressure Mean 144 114 123 Blood Pressure Source Monitor Blood Pressure Position Semi-Fowlers Blood Pressure Location Right Arm Pulse Ox 99 96 99 Oxygen Delivery Method Room Air Room Air Room Air Weight Weight: 85.5 kg Body Mass Index (BMI) 30.4 Physical Exam Const alert, oriented x3 and no apparent distress Constitutional Narrative: Obese elderly white female sitting up in bed, appears comfortable, nontoxic, at bedside General Appearance: cooperative HEENT normocephalic, head/scalp atraumatic, hearing grossly normal bilaterally and moist oral mucous membranes HEENT Narrative: Dentition is poor, Mallampati is 3, no thrush Eyes PERRL, EOMs intact bilaterally and conjunctivae normal Eyes Narrative: No scleral icterus Neck no lymphadenopathy, supple, no JVD and no carotid bruits Neck Narrative: Trachea is midline, no thyroid enlargement Resp normal respiratory effort, no retractions, no use of accessory muscles and clear to auscultation bilaterally Auscultation: Negative for crackles, rales, rhonchi or wheezes Cardio regular rate, regular rhythm, S1 normal heart sound, S2 normal heart sound, no murmurs, no rub, no gallops, no clicks and no JVD GI normal to inspection, nondistended, normoactive bowel sounds, soft to palpation, non-tender and non-distended; Negative for hepatosplenomegaly Extremity no clubbing, cyanosis or edema Peripheral Pulses: Yes pulses 2+ throughout Skin no rashes or lesions noted, no wounds, skin turgor normal, no jaundice, no petechiae and no mottling Neuro oriented x3, CN's II-XII intact bilaterally, moves all extremities and no focal motor deficits Neuro Narrative: No pronator drift Sensorium / Orientation: awake and alert Speech: speech normal Motor Exam: strength 5/5 throughout Psych affect normal Results Lab / Micro Data Attestation: I reviewed the patient's lab results. Result Diagrams: 08/15/21 13:40 08/15/21 13:40 Labs: Laboratory Results - last 24 hr 08/15/21 13:40: WBC 8.3, RBC 3.86 L, Hgb 11.8 L, Hct 35.9 L, MCV 93.0, MCH 30.6, MCHC 32.9, RDW Std Deviation 47.4 H, RDW Coeff of Maylin 13.9, Plt Count 372, MPV 9.2, Immature Gran % (Auto) 0.400, Neut % (Auto) 55.2, Lymph % (Auto) 30.6, [place] % (Auto) 10.3 H, Eos % (Auto) 2.9, Baso % (Auto) 0.6, Absolute Neuts (auto) 4.6, Absolute Lymphs (auto) 2.54, Nucleated RBC % 0 08/15/21 13:40: PT 12.1, INR 1.0, APTT 27.5 08/15/21 13:40: Sodium 134 L, Potassium 4.4, Chloride 99, Carbon Dioxide 28.0, Anion Gap 7, BUN 21 H, Creatinine 0.83, Estim Creat Clear Calc 48.92, Est GFR (MDRD) Af Amer 84, Est GFR (MDRD) Non-Af 70, BUN/Creatinine Ratio 25.2 H, Glucose 94, Calcium 8.9 08/15/21 13:40: TSH 1.[address] 08/15/21 14:15 IMPRESSION: Chronic involutional changes of the brain. Electronically Signed: Juan Manuel Olivas MD at 15:30 EST , Service support , Chest X-Ray 08/15/21 14:55 IMPRESSION: No acute abnormality is seen. Electronically Signed: Juan Manuel Olivas MD at 15:15 EST , Service support , Head/Neck CTA 08/15/21 17:11 IMPRESSION: 1. Scattered intracranial calcifications noted. No evidence of focal stenosis occlusion or aneurysmal dilatation. 2. No CTA evidence LVO. 3. CTA examination of the neck documents soft and calcified plaque at the level of the origin of the LEFT subclavian artery without stenosis. 4. There is a mild (less than 50%) narrowing of the RIGHT carotid bifurcation and RIGHT carotid bulb. 5. Minimal calcification involving the LEFT carotid bulb without stenosis or occlusion. 6. Normal appearance of the cervical course of the vertebral vessels bilaterally. Calcifications involving the cavernous carotid vessels bilaterally Electronically Signed: Tra Erwin MD at 17:57 EST Tel , Service support , ADDENDUM: 08/15/21 1805 IMPRESSION: 1. Scattered intracranial calcifications noted. No evidence of focal stenosis occlusion or aneurysmal dilatation. 2. No CTA evidence LVO. 3. CTA examination of the neck documents soft and calcified plaque at the level of the origin of the LEFT subclavian artery without stenosis. 4. There is a mild (less than 50%) narrowing of the RIGHT carotid bifurcation and RIGHT carotid bulb. 5. Minimal calcification involving the LEFT carotid bulb without stenosis or occlusion. 6. Normal appearance of the cervical course of the vertebral vessels bilaterally. Calcifications involving the cavernous carotid vessels bilaterally N.B. : The above Results were Read Back by Tra Erwin MD to Scott Chacon, Charge Nurse, RN, and understanding confirmed on 08/15/2021 17:58:31 (ET). Electronically Signed: Tra Erwin MD at 17:57 EST Tel , Service support , Assessment & Plan Assessment/Plan (1) Slurred speech: (2) Paresthesia of left upper extremity: (3) Left leg paresthesias: (4) Left arm weakness: (5) Uncontrolled hypertension: PLAN: Slurred speech/left upper extremity paresthesias and weakness/left lower extremity paresthesias -Highly suspect TIA -Continue aspirin daily 81 mg -Start Lipitor 80 mg daily -Check lipids -Check hemoglobin A1c -Check CTA of head and neck -Check MRI of brain -Check echocardiogram -PT/OT -speech therapy if needed after bedside eval -We will allow for some mild permissive hypertension at this time given symptoms earlier -Neurochecks as per order set -As needed labetalol Uncontrolled hypertension -Does not qualify for hypertensive emergency at this time as she has no current neurological symptoms -Continue home antihypertensive (lisinopril 40 mg/propranolol 60 mg/amlodipine 5 mg) -We will trend blood pressures and need for further medications -As needed labetalol is available Hyperlipidemia -Check lipids -Patient is currently not taking any medication at home for this but will place on statin given presenting symptoms DM-2 -Check hemoglobin A1c -Hold home metformin -SSI -Accu-Cheks before meals and at bedtime Diabetic neuropathy -Continue nortriptyline DVT prophylaxis -Lovenox -SCDs CODE STATUS -DNR CCA no intubation as per discussion on admission in the emergency department with the patient and her at the bedside Charges/Coding Visit Charges Inpatient E&M: 15399 Init Hosp L3
[2021-08-15 19:47] VITALS: PULSE 69
[2021-08-15 21:57] VITALS: BP 137/81; PULSE 74; RESP 17; TEMP 36.8; O2SAT 95
[2021-08-15] MEDS: Atorvastatin Calcium 80 MG Tablet PO (22:11)
[2021-08-15] MEDS: Donepezil HCl 5 MG Tablet PO (22:11)
[2021-08-15] MEDS: Nortriptyline 25 MG Capsule 50 MG PO (22:15)
[2021-08-15 22:16] LABS: Bedside Glucose 121 mg/dL (70-110)
[2021-08-15 22:38] VITALS: BMI 30.4
[2021-08-16] VITALS (9 sets, daily range): BP systolic 147–162; BP diastolic 67–84; PULSE 65–72; RESP 16–17; TEMP 36.4–36.6; O2SAT 95–96; BMI 30.4
[2021-08-16] MEDS: Acetaminophen 325 MG Tablet 650 MG PO (03:24)
[2021-08-16 06:35] LABS: Bedside Glucose 98 mg/dL (70-110)
[2021-08-16 06:47] LABS: Absolute Lymphocyte Count 2.75 X10^3/uL (0.83-4.51); Absolute Neutrophil Count 3.8 X10^3/uL (2.0-7.7); Basophil# 0.03 X10^3/uL; Basophil% 0.4 % (0-1); Hemoglobin 11.9 g/dL (12.0-15.0); Lymphocyte # 2.75 X10^3/ul (0.83-4.51); Lymphocyte % 36.7 % (19-41); Mean Corpuscular Volume 91.1 fL (81-99); Mean Platelet Vol. 9.1 fl (6.2-12.0); Monocyte# 0.63 X10^3/uL; Monocyte% 8.4 % (0-10); NRBC Flagged by Analyzer 0 % (0-5); Neutrophil # 3.77 X10^3/uL (2.7-7.7); Neutrophil % 50.4 % (47-70); Platelet Count 369 K/mm3 (150-450); RBC Distribution Width CV 13.5 % (11.6-14.6); RBC Distribution Width SD 45.8 fl (35.1-43.9); Red Blood Count 3.84 M/mm3 (4.2-5.4); White Blood Count 7.5 K/mm3 (4.4-11.0)
[2021-08-16 07:02] LABS: ALB/GLOB Ratio 0.7 RATIO (0.9-2.4); AST(SGOT) 19 U/L (15-37); Alanine Aminotransfer ALT/SGPT 23 U/L (13-56); Albumin, Serum 3.1 g/dL (3.2-5.0); Alkaline Phosphatase 43 U/L (45-117); Anion Gap 9 (5-15); BUN 14 mg/dL (7-18); BUN/Creat Ratio 17.9 RATIO (10-20); Calcium,Total 8.8 mg/dL (8.5-10.1); Chloride 102 mmol/L (98-107); Cholesterol 255 mg/dL (200); Creatinine, Serum 0.78 mg/dL (0.55-1.02); EST Glomerular Filtration Rate 75 mL/min (>60); Est Glom Filt Rate - Afr Amer 91 mL/min (>60); Globulin 4.3 g/dL (2.2-4.2); Glucose 99 mg/dL (74-106); High Density Lipoprotein 56 mg/dL; Magnesium 1.9 mg/dL (1.6-2.6); Phosphorus 4.2 mg/dL (2.5-4.9); Potassium 3.7 mmol/L (3.5-5.1); Protein, Total 7.4 g/dL (6.4-8.2); Sodium Level 138 mmol/L (136-145); Triglycerides 140 mg/dL; Very Low Density Lipoprotein 28 mg/dL (5-40)
[2021-08-16] MEDS: amLODIPine 5 MG Tablet PO (08:04)
[2021-08-16] MEDS: DULoxetine Hcl 60 MG Capsule PO (08:04)
[2021-08-16] MEDS: Aspirin 81 MG TAB.CHEW PO (08:04)
[2021-08-16] MEDS: Lisinopril 40 MG Tablet PO (08:04)
[2021-08-16] MEDS: Propranolol LA 60 MG Capsule PO (08:05)
[2021-08-16] MEDS: Enoxaparin 40 MG/0.4 ML Syringe SC (08:05)
[2021-08-16 08:10] LABS: Hemoglobin A1c 5.5 % (3.8-5.6)
--- NOTE | 2021-08-16 08:16 | TELEMED_ITS ---
[facility] has confirmed receipt of a request for visit. This document confirms receipt of the order initiating the consult. To find the results of the consultation, please view the patient's reports for the scanned Telemed Consult.
[2021-08-16 11:31] LABS: Bedside Glucose 78 mg/dL (70-110)
--- NOTE | 2021-08-16 11:59 | CASEMGMT ---
Social Work Completed PHQ-9 assessment d/t TIA. Pt scored 11/20. No depression indicated. Pt reports she is doing well, no changes in mood. Pt is active with PCP. This worked encouraged to speak with PCP if mood changes. Pt and report family is very supportive and live across the [address]. Explained and provided Stroke Support Group brochure. Briefly explained possible changes after a stroke the Group provides ongoing education on how to prevent further strokes. Pt agreeable to receive continued information. Added to [facility] mailing list. No other issues identified. Christen Rubin, STAFFING ASSOCIATE AUDIOVISUAL LEAD TECHNICIAN
--- NOTE | 2021-08-16 13:05 | PCM.DC ---
Discharge Instructions Diet Discharge Diet: Low fat / Low cholesterol Activity Discharge Activity: Return to Normal Activity Dressing / Incision Call your doctor if you observe: Numbness or Tingling Follow Up Care Test Results: Test results from this visit will be discussed in further detail at your follow-up appointment, if applicable. Discharge Plan Admission Admit Date/Time: 08/15/21 17:06 Primary Reason for Your Visit: TIA Attending Provider: Deepak Lopez Primary Care Provider: Nanci Mead Discharge Orders/Prescriptions Prescriptions: New clopidogrel [Plavix] 75 mg tablet 75 mg PO DAILY Qty: 21 RF: 0 atorvastatin 80 mg tablet 80 mg PO QHS Qty: 30 RF: 0 Continued donepezil 5 MG tablet 5 mg PO QHS RF: 0 propranolol 60 MG capsule 60 mg PO DAILY RF: 0 aspirin 81 MG tablet,chewable 81 mg PO DAILY@0800 RF: 0 duloxetine 60 MG capsule 60 mg PO DAILY 30 Days RF: 0 ibuprofen 200 MG capsule 200 mg PO DAILY RF: 0 nortriptyline 50 MG capsule 50 mg PO QHS RF: 0 metformin 500 MG tablet 1,000 mg PO BIDCM RF: 0 amlodipine 5 MG tablet 5 mg PO DAILY Qty: 30 RF: 0 lisinopril 40 mg tablet 40 mg PO DAILY RF: 0 Referrals / Follow Up: Nanci Mead DO [Primary Care Provider] - Disposition Disposition (needs filled in before D/C Order can be placed): Home, Self Care
--- NOTE | 2021-08-16 13:17 | PCM.DC.SUM ---
Documented by User: AVI Granados 08/16/21 13:20 Providers Date of Admission: 08/15/21 Primary Care Physician: Dr. Nanci Mead DO Reason For Visit: TIA HTN Diagnosis Discharge Diagnosis (1) Slurred speech: Status: Acute Code(s): R47.81 - Slurred speech (2) Paresthesia of left upper extremity: Status: Acute Code(s): R20.2 - Paresthesia of skin (3) Left leg paresthesias: Status: Acute Code(s): R20.2 - Paresthesia of skin (4) Left arm weakness: Status: Acute Code(s): R29.898 - Other symptoms and signs involving the musculoskeletal system (5) Uncontrolled hypertension: Status: Acute Code(s): I10 - Essential (primary) hypertension Medications at Discharge Home Medications aspirin 81 mg PO DAILY@0800 tab.chew 01/24/17 donepezil 5 mg PO QHS tab 01/24/17 duloxetine 60 mg PO DAILY 30 Days 01/24/17 propranolol 60 mg PO DAILY capsule 01/24/17 amlodipine 5 mg PO DAILY #30 tab 01/27/20 ibuprofen 200 mg PO DAILY 01/27/20 metformin 1,000 mg PO BIDCM 01/27/20 nortriptyline 50 mg PO QHS 01/27/20 lisinopril 40 mg PO DAILY 08/15/21 atorvastatin 80 mg PO QHS #30 tab 08/16/21 clopidogrel [Plavix] 75 mg PO DAILY #21 tab 08/16/21 Hospital Course Operations None Procedures 2-D Echocardiogram Summary of Care Provided Minutes Spent on Discharge: 35 Hospital Course: Patient is an 80-year-old female who initially came in with left-sided weakness and paresthesias. However patient's symptoms have resolved. Patient was evaluated by [facility] who recommended initiation of 21 days of Plavix along with initiation of low-dose aspirin. Patient will also be discharged home with prescription for high-dose atorvastatin. Recommendation sent with patient for outpatient neurology follow-up as well as follow-up with PCP. Physical Exam Const alert, oriented x3 and no apparent distress General Appearance: cooperative HEENT normocephalic and head/scalp atraumatic Eyes conjunctivae normal and no scleral icterus Neck supple General: trachea midline Resp normal respiratory effort, normal air movement and clear to auscultation bilaterally Cardio regular rate, regular rhythm, S1 normal heart sound, S2 normal heart sound and peripheral pulses 2+ throughout GI normal to inspection, nondistended, normoactive bowel sounds, soft to palpation and non-tender Extremity normal capillary refill and no clubbing, cyanosis or edema General Extremity: no tenderness to palpation of joints or extremities Skin skin turgor normal General Skin Exam: no breakdown Lesions: no lesions Neuro no focal motor deficits and no sensory deficits noted Psych affect normal Appearance: appropriate Weight / BMI Weight Weight: 188 lb 7.924 oz Body Mass Index (BMI) 30.4 ABG / Lab / Microbiology Data Result Diagrams: 08/16/21 06:05 08/16/21 06:05 Laboratory: Laboratory Results - last 24 hr 08/15/21 13:40: WBC 8.3, RBC 3.86 L, Hgb 11.8 L, Hct 35.9 L, MCV 93.0, MCH 30.6, MCHC 32.9, RDW Std Deviation 47.4 H, RDW Coeff of [place]lin 13.9, Plt Count 372, MPV 9.2, Immature Gran % (Auto) 0.400, Neut % (Auto) 55.2, Lymph % (Auto) 30.6, [place] % (Auto) 10.3 H, Eos % (Auto) 2.9, Baso % (Auto) 0.6, Absolute Neuts (auto) 4.6, Absolute Lymphs (auto) 2.54, Nucleated RBC % 0 08/15/21 13:40: PT 12.1, INR 1.0, APTT 27.5 08/15/21 13:40: Sodium 134 L, Potassium 4.4, Chloride 99, Carbon Dioxide 28.0, Anion Gap 7, BUN 21 H, Creatinine 0.83, Estim Creat Clear Calc 48.92, Est GFR (MDRD) Af Amer 84, Est GFR (MDRD) Non-Af 70, BUN/Creatinine Ratio 25.2 H, Glucose 94, Calcium 8.9 08/15/21 13:40: TSH 1.66 08/15/21 22:06: POC Glucose 121 H 08/16/21 06:05: WBC 7.5, RBC 3.84 L, Hgb 11.9 L, Hct 35.0 L, MCV 91.1, MCH 31.0, MCHC 34.0, RDW Std Deviation 45.8 H, RDW Coeff of [place] 13.5, Plt Count 369, MPV 9.1, Immature Gran % (Auto) 0.100, Neut % (Auto) 50.4, Lymph % (Auto) 36.7, [place] % (Auto) 8.4, Eos % (Auto) 4.0, Baso % (Auto) 0.4, Absolute Neuts (auto) 3.8, Absolute Lymphs (auto) 2.75, Nucleated RBC % 0 08/16/21 06:05: Sodium 138, Potassium 3.7, Chloride 102, Carbon Dioxide 27.0, Anion Gap 9, BUN 14, Creatinine 0.78, Estim Creat Clear Calc 40.60, Est GFR (MDRD) Af Amer 91, Est GFR (MDRD) Non-Af 75, BUN/Creatinine Ratio 17.9, Glucose 99, Calcium 8.8, Phosphorus 4.2, Magnesium 1.9, Total Bilirubin 0.40, AST 19, ALT 23, Alkaline Phosphatase 43 L, Total Protein 7.4, Albumin 3.1 L, Globulin 4.3 H, Albumin/Globulin Ratio 0.7 L, Triglycerides 140, Cholesterol 255 H, LDL Cholesterol 171 H, VLDL Cholesterol 28, HDL Cholesterol 56 08/16/21 06:05: Hemoglobin A1c 5.5 08/16/21 06:31: POC Glucose 98 08/16/21 11:26: POC Glucose 78 Radiography Diagnostic Testing: Radiology Impression Brain CT 08/15/21 14:15 IMPRESSION: Chronic involutional changes of the brain. Electronically Signed: Juan Manuel Olivas MD at 15:30 EST , Service support , Chest X-Ray 08/15/21 14:55 IMPRESSION: No acute abnormality is seen. Electronically Signed: Juan Manuel Olivas MD at 15:15 EST , Service support , Brain MRI 08/15/21 17:11 IMPRESSION: 1. 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 2. 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 Extensive dilated perivascular spaces noted within the basal ganglia. 3. No mass, hemorrhage, or acute territorial infarct. 4. Chronic-appearing ethmoid sinus because subtle thickening. Electronically Signed: Tra Erwin MD at 22:11 EST Tel , Service support , Echocardiogram 08/15/21 17:11 Interpretation Summary The study was technically difficult. Based upon the 2D echocardiographic images obtained there appears to be grossly normal left ventricular size, wall motion, and systolic function. The estimated ejection fraction is 55 %. There is mild mitral annular calcification. Mild focal mitral valve calcification of the anterior leaflet. Trivial mitral valve insufficiency. Trivial tricuspid valve insufficiency. Trivial aortic valve insufficiency. Unable to estimate RV systolic pressure/pulmonary artery pressure due to technically difficult study. No evidence for diastolic dysfunction. Bubble contrast study negative for right to left interatrial shunt. Ordering Physician: Nathalie Pearson Referring Physician: Nanci Mead Performed By: Ruth Hurtado, RDCS, RVT Head/Neck CTA 08/15/21 17:11 IMPRESSION: 1. Scattered intracranial calcifications noted. No evidence of focal stenosis occlusion or aneurysmal dilatation. 2. No CTA evidence LVO. 3. CTA examination of the neck documents soft and calcified plaque at the level of the origin of the LEFT subclavian artery without stenosis. 4. There is a mild (less than 50%) narrowing of the RIGHT carotid bifurcation and RIGHT carotid bulb. 5. Minimal calcification involving the LEFT carotid bulb without stenosis or occlusion. 6. Normal appearance of the cervical course of the vertebral vessels bilaterally. Calcifications involving the cavernous carotid vessels bilaterally Electronically Signed: Tra Erwin MD at 17:57 EST Tel , Service support , ADDENDUM: 08/15/21 1805 IMPRESSION: 1. Scattered intracranial calcifications noted. No evidence of focal stenosis occlusion or aneurysmal dilatation. 2. No CTA evidence LVO. 3. CTA examination of the neck documents soft and calcified plaque at the level of the origin of the LEFT subclavian artery without stenosis. 4. There is a mild (less than 50%) narrowing of the RIGHT carotid bifurcation and RIGHT carotid bulb. 5. Minimal calcification involving the LEFT carotid bulb without stenosis or occlusion. 6. Normal appearance of the cervical course of the vertebral vessels bilaterally. Calcifications involving the cavernous carotid vessels bilaterally N.B. : The above Results were Read Back by Tra Erwin MD to Scott Chacon, Charge Nurse, RN, and understanding confirmed on 08/15/2021 17:58:31 (ET). Electronically Signed: Tra Erwin MD at 17:57 EST Tel , Service support , D/C Instructions Discharge Diet: Low fat / Low cholesterol Call your doctor if you observe: Numbness or Tingling Meaningful Use Info Meaningful Use Diagnoses (Choose all that apply): None applicable Discharge Plan Admission Admit Date/Time: 08/15/21 17:06 Primary Reason for Your Visit: TIA Attending Provider: Deepak Lopez Primary Care Provider: Nanci Mead Discharge Orders/Prescriptions Prescriptions: New clopidogrel [Plavix] 75 mg tablet 75 mg PO DAILY Qty: 21 RF: 0 atorvastatin 80 mg tablet 80 mg PO QHS Qty: 30 RF: 0 Continued donepezil 5 MG tablet 5 mg PO QHS RF: 0 propranolol 60 MG capsule 60 mg PO DAILY RF: 0 aspirin 81 MG tablet,chewable 81 mg PO DAILY@0800 RF: 0 duloxetine 60 MG capsule 60 mg PO DAILY 30 Days RF: 0 ibuprofen 200 MG capsule 200 mg PO DAILY RF: 0 nortriptyline 50 MG capsule 50 mg PO QHS RF: 0 metformin 500 MG tablet 1,000 mg PO BIDCM RF: 0 amlodipine 5 MG tablet 5 mg PO DAILY Qty: 30 RF: 0 lisinopril 40 mg tablet 40 mg PO DAILY RF: 0 Referrals / Follow Up: Nanci Mead DO [Primary Care Provider] - Within 2 Weeks Octavio Birmingham MD [NON-STAFF] - Disposition Disposition (needs filled in before D/C Order can be placed): Home, Self Care Documented by User: Dr. Deepak Lopez DO 08/16/21 15:20 Providers Date of Admission: 08/15/21 Reason For Visit: TIA HTN Medications at Discharge Home Medications aspirin 81 mg PO DAILY@0800 tab.chew 01/24/17 donepezil 5 mg PO QHS tab 01/24/17 duloxetine 60 mg PO DAILY 30 Days 01/24/17 propranolol 60 mg PO DAILY capsule 01/24/17 amlodipine 5 mg PO DAILY #30 tab 01/27/20 ibuprofen 200 mg PO DAILY 01/27/20 metformin 1,000 mg PO BIDCM 01/27/20 nortriptyline 50 mg PO QHS 01/27/20 lisinopril 40 mg PO DAILY 08/15/21 atorvastatin 80 mg PO QHS #30 tab 08/16/21 clopidogrel [Plavix] 75 mg PO DAILY #21 tab 08/16/21 Hospital Course Procedures 2-D Echocardiogram Summary of Care Provided Minutes Spent on Discharge: 35 Hospital Course: Patient seen and examined independently. Data and vitals reviewed. I agree with the above note by the nurse practitioner. This is a 80-year-old female presented to with delayed presentation left-sided weakness. Past Sunday. Symptoms lasted for about 15 minutes and completely resolved. Patient had an MRI that showed no acute stroke. Patient was seen by [facility] who for the patient had a TIA and recommended clopidogrel load 375 daily for 3 weeks. Additionally patient will take aspirin and after 3 weeks. Did recommend an event monitor to evaluate for atrial fibrillation. Patient has been symptom-free during his hospitalization Physical Exam Const alert General Appearance: cooperative Neuro CN's II-XII intact bilaterally Motor Exam: strength 5/5 throughout ABG / Lab / Microbiology Data Result Diagrams: 08/16/21 06:05 08/16/21 06:05 Discharge Plan Admission Admit Date/Time: 08/15/21 17:06 Primary Reason for Your Visit: TIA Attending Provider: Deepak Lopez Primary Care Provider: Nanci Mead Discharge Orders/Prescriptions Prescriptions: New clopidogrel [Plavix] 75 mg tablet 75 mg PO DAILY Qty: 21 RF: 0 atorvastatin 80 mg tablet 80 mg PO QHS Qty: 30 RF: 0 Continued donepezil 5 MG tablet 5 mg PO QHS RF: 0 propranolol 60 MG capsule 60 mg PO DAILY RF: 0 aspirin 81 MG tablet,chewable 81 mg PO DAILY@0800 RF: 0 duloxetine 60 MG capsule 60 mg PO DAILY 30 Days RF: 0 ibuprofen 200 MG capsule 200 mg PO DAILY RF: 0 nortriptyline 50 MG capsule 50 mg PO QHS RF: 0 metformin 500 MG tablet 1,000 mg PO BIDCM RF: 0 amlodipine 5 MG tablet 5 mg PO DAILY Qty: 30 RF: 0 lisinopril 40 mg tablet 40 mg PO DAILY RF: 0 Referrals / Follow Up: Nanci Mead DO [Primary Care Provider] - Within 2 Weeks Octavio Birmingham MD [NON-STAFF] - Disposition Disposition (needs filled in before D/C Order can be placed): Home, Self Care Charges/Coding Visit Charges OBSV E&M: 32566 Observation care discharge
[2021-08-16] MEDS: Clopidogrel Bisulfate 300 MG Tablet PO (14:06)
== END 2021-08-16 13:13 | disposition home or self-care (01) ==
LOC: ED 15:59 → PCU 19:09
PROVIDERS: Admitting Provider Internal Medicine; Emergency Provider Emergency Medicine; PCP Internal Medicine
DX: G45.9 Transient cerebral ischemic attack, unspecified (principal); I10 Essential (primary) hypertension; R47.81 Slurred speech; E78.5 Hyperlipidemia, unspecified; E11.40 Type 2 diabetes mellitus with diabetic neuropathy, unspecified; R53.1 Weakness; R29.700 NIHSS score 0; E87.6 Hypokalemia; Z79.899 Other long term (current) drug therapy; Z79.84 Long term (current) use of oral hypoglycemic drugs; Z79.82 Long term (current) use of aspirin
CPT/HCPCS: 36415; 70450; 70496; 70498; 70551; 71045; 80048; 80053; 80061; 82962; 83036; 83735; 84100; 84443; 85025; 85610; 85730; 93005; 93306; 96372; 97166; 99218; 99285; Q9967; A4216; G0378

== ENCOUNTER → 2022-08-30 | Outpatient (CLI) | payer SELFPAY ==
--- NOTE | 2022-08-30 16:37 | RAD_ITS ---
INDICATION: COUGH -- STAT EXAMINATION/TECHNIQUE: X-RAY - XR Chest 2 Views COMPARISON: August 15, 2021 FINDINGS: LINES/DEVICES: None. LUNGS: Minor chronic interstitial changes at the lung bases. No focal infiltration, pulmonary, edema or effusion. No pneumothorax. MEDIASTINUM AND CARDIOVASCULAR STRUCTURES: Cardiac silhouette not enlarged. Central airways and mediastinal contour are unremarkable. Mild tortuosity and calcification of the aorta. Calcified right azygous node. BONES AND SOFT TISSUES: There are degenerative changes of the shoulders and thoracic spine RAD/Chest PA and Lateral IMPRESSION: ASHD and mild chronic interstitial changes at the lung bases. Electronically Signed: Blu Fragoso MD at 17:12 EST Reading Location ID and State: [facility] / [place] , Service support ,
[2022-08-30 17:43] LABS: Absolute Neutrophil Count 9.2 X10^3/uL (2.0-7.7); Basophil# 0.03 X10^3/uL; Basophil% 0.2 % (0-1); Eosinophils% 0.8 % (0-5); Hemoglobin 12.5 g/dL (12.0-15.0); Lymphocyte % 18.6 % (19-41); Mean Corp Hgb Conc 32.1 g/dL (32-36); Mean Corpuscular Hgb 30.6 pg (27.0-32.0); Mean Corpuscular Volume 95.6 fL (81-99); Mean Platelet Vol. 9.1 fl (6.2-12.0); Monocyte# 0.61 X10^3/uL; Monocyte% 4.9 % (0-10); NRBC Flagged by Analyzer 0 % (0-5); Neutrophil # 9.23 X10^3/uL (2.7-7.7); Neutrophil % 74.5 % (47-70); Platelet Count 549 K/mm3 (150-450); RBC Distribution Width CV 13.3 % (11.6-14.6); RBC Distribution Width SD 46.6 fl (35.1-43.9); Red Blood Count 4.08 M/mm3 (4.2-5.4); White Blood Count 12.4 K/mm3 (4.4-11.0)
[2022-08-30 19:07] LABS: ALB/GLOB Ratio 0.8 RATIO (0.9-2.4); AST(SGOT) 13 U/L (15-37); Alanine Aminotransfer ALT/SGPT 21 U/L (13-56); Albumin, Serum 3.4 g/dL (3.2-5.0); Alkaline Phosphatase 50 U/L (45-117); Anion Gap 11 (5-15); BUN 24 mg/dL (7-18); Calcium,Total 9.2 mg/dL (8.5-10.1); Chloride 97 mmol/L (98-107); Creatinine, Serum 1.41 mg/dL (0.55-1.02); EST Glomerular Filtration Rate 38 mL/min (>60); Est Glom Filt Rate - Afr Amer 46 mL/min (>60); Globulin 4.1 g/dL (2.2-4.2); Glucose 116 mg/dL (74-106); Potassium 5.3 mmol/L (3.5-5.1); Protein, Total 7.5 g/dL (6.4-8.2); Sodium Level 132 mmol/L (136-145); Thyroid Stim Hormone (TSH) 2.57 uIU/mL (0.358-3.74)
== END | disposition home or self-care (01) ==
PROVIDERS: PCP Internal Medicine; Referring Provider Internal Medicine; Visit Provider Internal Medicine
DX: M19.011 Primary osteoarthritis, right shoulder (principal); I70.0 Atherosclerosis of aorta; I77.1 Stricture of artery; M19.012 Primary osteoarthritis, left shoulder; R05.9 Cough, unspecified; R41.0 Disorientation, unspecified
CPT/HCPCS: 36415; 71046; 80053; 84443; 85025

== ENCOUNTER 2023-10-10 20:16 | Observation (INO) | payer OTHER, SELFPAY ==
[2023-10-10] VITALS (8 sets, daily range): BP systolic 107–146; BP diastolic 66–99; PULSE 74–86; RESP 15–17; TEMP 35.6–35.9; O2SAT 85–100; BMI 36.6
--- NOTE | 2023-10-10 20:20 | EKG12_ITS ---
Test Reason : DYSRHYTHMIA Blood Pressure : / mmHG Vent. Rate : 079 BPM Atrial Rate : 079 BPM P-R Int : 216 ms QRS Dur : 112 ms QT Int : 406 ms P-R-T Axes : 059 043 046 degrees QTc Int : 465 ms Sinus rhythm with 1st degree A-V block Otherwise normal ECG Confirmed by Adeel Crane ([id number]), supervising editor trailer TREASURE JETT ([id number]) on 10/11/2023 8:04:47 AM Referred By: Confirmed By:Adeel Crane
--- NOTE | 2023-10-10 20:21 | CT_ITS ---
We are attempting to reach an attending provider to discuss findings. An addendum with communication details will be sent when the communication is complete. STUDY: CTA HEAD AND NECK WITH CONTRAST REASON FOR EXAM: Female, 82 years old. Neuro deficit, acute, stroke suspected RADIATION DOSAGE (If Supplied By Facility): CTDIvol = ( ) mGy, DLP = ( ) mGycm TECHNIQUE: CT angiography was performed with a multi-detector CT scanner. Data acquisition was obtained from the skull base through the vertex following intravenous administration of IV 100mL [id number]-[id number]. MIP images were reconstructed from the axial data set. Post-processing of the angiographic images was performed, with multiplanar reformation and 3D reconstruction. Individualized dose optimization techniques were used for this CT. COMPARISON: No relevant priors. FINDINGS: Normal bilateral petrous carotid arteries. Normal right cavernous carotid artery with a normal supraclinoid bifurcation. Normal left cavernous carotid artery with a normal supraclinoid bifurcation. Normal right A1 segments of the anterior cerebral artery. Normal left A1 segments of the anterior cerebral artery. Normal intact anterior communicating artery (ACOM). Normal bilateral A2 segments of the anterior cerebral arteries. Normal right M1 and M2 segments of the middle cerebral arteries, with a normal M1 bifurcation. Normal left M1 and M2 segments of the middle cerebral arteries, with a normal M1 bifurcation. Normal right posterior communicating artery (PCOM). Normal left posterior communicating artery (PCOM). Normal bilateral vertebral arteries. Normal basilar artery with a normal basilar bifurcation. The visualized bilateral superior cerebellar (SCA) arteries are normal. Normal bilateral P1, P2 and visualized P3 segments of the posterior cerebral arteries. There is no demonstrated aneurysm of the [place]. There is no demonstrated abnormality of the visualized brain. AORTIC ARCH: Normal visualized aortic arch. Normal origins of the brachiocephalic, left common carotid, and left subclavian arteries. RIGHT CAROTID ARTERIES: Normal right common carotid artery (CCA). There is moderate atherosclerotic plaque formation with moderate narrowing of the right carotid bulb. There is moderate atherosclerotic plaque formation of the origin of the right internal carotid artery with an estimated stenosis of 50-69% stenosis. Normal visualized cervical portion of the right internal carotid artery. Normal origin of the right external carotid artery (ECA). LEFT CAROTID ARTERIES: Normal left common carotid artery (CCA). There is mild atherosclerotic plaque formation with minimal narrowing of the left carotid bulb. There is mild atherosclerotic plaque formation of the origin of the left internal carotid artery with less than 50% cross sectional diameter stenosis. Normal visualized cervical portion of the left internal carotid artery. Normal origin of the left external carotid artery (ECA). VERTEBRAL ARTERIES: Normal bilateral vertebral arteries. CT/STROKE CTA Head AND Neck W/Con IMPRESSION: Normal CTA Head with contrast. Moderate (60%) right carotid stenosis. Mild (20%) left carotid stenosis. Patent vertebral arteries bilaterally. Electronically Signed: Tra Gil MD at 21:09 EST ,
--- NOTE | 2023-10-10 20:26 | CT_ITS ---
We are attempting to reach an attending provider to discuss findings. An addendum with communication details will be sent when the communication is complete. STUDY: CT BRAIN WITHOUT CONTRAST REASON FOR EXAM: Female, 82 years old. Neuro deficit, acute, stroke suspected RADIATION DOSAGE (If Supplied By Facility): CTDIvol = ( ) mGy, DLP = ( ) mGycm TECHNIQUE: Transaxial CT imaging of the brain was performed without administration of intravenous contrast material. Individualized dose optimization techniques were used for this CT. COMPARISON: 08/15/2021 FINDINGS: Normal soft tissue structures. Normal calvarium. There is moderate cerebral atrophy with widening of the extra-axial spaces and ventricular dilatation. There are areas of decreased attenuation within the white matter tracts of the supratentorial brain, consistent with microvascular disease changes. Normal basal ganglia and thalami. Normal brainstem. Normal cerebellum. There is no intracranial hemorrhage. There are no findings of an acute ischemic infarction. There is mucoperiosteal inflammatory disease of the paranasal sinuses consistent with moderate chronic sinusitis. CT/STROKE Brain/Head without Cont IMPRESSION: Chronic involutional changes of the brain. Electronically Signed: Tra Gil MD at 20:50 EST ,
--- NOTE | 2023-10-10 20:28 | EDS_ITS ---
HPI History of Present Illness Chief Complaint: Weakness PFSH PFSH
--- NOTE | 2023-10-10 20:28 | EX.ED.DYSGE1 ---
HPI History of Present Illness Chief Complaint: Weakness [facility] Medical History Chronic pain Diabetes mellitus, type II HLD (hyperlipidemia) Hypertension Migraines Home Medications aspirin 81 mg chewable tablet 81 mg PO DAILY@0800 01/24/17 [Rx Last Taken 08/15/21] duloxetine 60 mg capsule,delayed release 60 mg PO DAILY 30 days 01/24/17 [Rx Last Taken 08/15/21] propranolol 60 mg capsule,24 hr,extended release 60 mg PO DAILY 01/24/17 [Rx Last Taken 08/15/21] ibuprofen 200 mg capsule 200 mg PO DAILY pain 01/27/20 [History Last Taken Unknown] metformin 500 mg tablet 1,000 mg PO DAILY diabetes 01/27/20 [History Last Taken 08/15/21] nortriptyline 50 mg capsule 50 mg PO QHS sleep 01/27/20 [History Last Taken 08/14/21] lisinopril 40 mg tablet 40 mg PO DAILY BP 08/15/21 [History Last Taken 08/15/21] L.acidophilus-B.animalis-B.bifidum 25 billion cell-FOS 100 mg capsule (Probiotic Complex) 1 cap PO DAILY 10/10/23 [History Last Taken Unknown] cyanocobalamin (vitamin B-12) 1,000 mcg tablet (Vitamin B-12) 1,000 mcg PO DAILY 10/10/23 [History Last Taken Unknown] donepezil 5 mg tablet 10 mg PO QHS 10/10/23 [History Last Taken Unknown] duloxetine 30 mg capsule,delayed release 30 mg PO QHS 10/10/23 [History Last Taken Unknown] multivitamin (Daily Multi-Vitamin tablet) 1 tab PO DAILY 10/10/23 [History Last Taken Unknown] Allergy/AdvReac Type Severity Reaction Status Date / Time Penicillins [PCN] Allergy Hives Verified 10/10/23 20:17 Surgical History History of appendectomy Social History (Updated 08/15/21 @ 19:[address] Nathalie Pearson DO) Smoking Status: Never smoker alcohol intake: never substance use type: does not use EXAM Physical Exam Const Vital Signs: 10/10/23 20:18 10/10/23 20:24 10/10/23 20:40 Temperature 96.1 F L 96.1 F L Temperature Source Temporal Temporal Pulse Rate 86 86 Respiratory Rate 16 16 Respiratory Pattern Blood Pressure Blood Pressure Mean Pulse Ox 94 94 100 Oxygen Delivery Method Room Air Room Air Nasal Cannula Oxygen Flow Rate (L/min) 2 10/10/23 20:40 10/10/23 20:48 10/10/23 20:55 Temperature 96.1 F L Temperature Source Temporal Pulse Rate 86 76 Respiratory Rate 16 16 Respiratory Pattern Normal Blood Pressure 107/97 H 107/97 H Blood Pressure Mean 100 100 Pulse Ox 94 97 Oxygen Delivery Method Room Air Nasal Cannula Oxygen Flow Rate (L/min) 2 10/10/23 20:50 10/10/23 21:33 10/10/23 21:33 Temperature Temperature Source Pulse Rate 80 74 75 Respiratory Rate 16 17 16 Respiratory Pattern Blood Pressure 139/66 H 139/66 H Blood Pressure Mean 90 90 Pulse Ox 85 99 98 Oxygen Delivery Method Room Air Nasal Cannula Nasal Cannula Oxygen Flow Rate (L/min) 2 2 10/10/23 22:04 Temperature Temperature Source Pulse Rate 77 Respiratory Rate 17 Respiratory Pattern Blood Pressure 125/91 H Blood Pressure Mean 102 Pulse Ox 98 Oxygen Delivery Method Nasal Cannula Oxygen Flow Rate (L/min) 2 MDM MDM MDM Narrative Medical decision making narrative: HISTORY OF PRESENT ILLNESS: 82-year-old female presents with approximately 11 hours of altered mental status, aphasia and dysarthria. Patient has history of dementia does not provide elaborate history. The history provided by daughter who stated the patient typically walks around and gets on her own feet herself however today she has been more diffusely weak has had trouble getting around and noticed approxi-9:30 AM on 10/10/2023 patient experienced acute onset of difficulty speaking. Daughter tried to feed the patient throughout the day however it did not get any better which prompted her visit tonight. Denies any falls. Denies any recent complaints of headache, chest pain, shortness of breath, fever, abdominal pain. Patient daughter states that patient has been experiencing signs of urination. Daughter states she had to clean her bed more than often over the last 3 days. REVIEW OF SYSTEMS: Pertinent positives: Change in mental status, aphasia, increased urinary frequency Pertinent negatives: As per HPI PHYSICAL EXAM: Nursing triage notes reviewed, Vital signs reviewed Constitutional: please see mdm HENT: MMM Eyes: Pupils equal round and reactive to light, Extraocular muscles intact Neck: No stridor, no JVD, full neck ROM Lungs: Clear to auscultation, No wheezing or rales. No increased work of breathing, no conversational dyspnea, no accessory muscle use, no nasal flaring. No respiratory distress noted Heart: Regular rate and rhythm, No murmurs, No rubs and No gallops, 2+ distal pulses (radial, femoral, posterior tibial) in all extremities Abdomen: Soft, there is no tenderness, rigidity, rebound or guarding, no obvious peritoneal signs, no palpable pulsatile abdominal masses, no auscultated abdominal bruit : No CVAT Extremities: No edema Neuro: Alert, oriented to person but not place or time, diffusely weak all over appears to have ability to move all 4 extremities, appears to have sensation all 4 extremities, no obvious facial droop, there is marked aphasia and dysarthria. Initial NIH was 15. Skin: No rash or lesions noted MEDICAL DECISION MAKING: Chief Complaint: Altered mental status, aphasia External records reviewed: Seen in 2020 for similar complaints, diagnosed with TIA and hypertension MRI from that time showed 1. 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 2. 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 Extensive dilated perivascular spaces noted within the basal ganglia. 3. No mass, hemorrhage, or acute territorial infarct. 4. Chronic-appearing ethmoid sinus because subtle thickening. Factors affecting care: Hyperlipidemia, hypertension, type 2 diabetes, dementia Social determinants of health: Elderly History obtained from others: Patient's daughter Consults: Stroke neurology, Internal medicine ([place]) MDM Narrative: Patient was initially hemodynamically stable, afebrile, nontoxic-appearing. Initial neurologic exam was concerning for acute CVA given aphasia as patient was in the 24-hour window for thrombectomy and so a code stroke was called. Patient was taken immediately to CT scan to undergo as Noncon CT and a CTA. She is not within the TNK window. I considered the following differential diagnosis: CVA, TIA, metabolic or infectious encephalopathy ALL IMAGES (IF OBTAINED) HAVE BEEN PERSONALLY REVIEWED AND INTERPRETED BY MYSELF. EKG with normal sinus rhythm, prolonged AL interval, first-degree AV block, normal axis, no STEMI High-sensitivity troponin is negative, no evidence of myocardial ischemia I have personally reviewed the patient's chest x-ray. Chest x-ray is unremarkable for pulmonary edema, pneumothorax, pneumonia or focal cardiopulmonary abnormality. CT scan of the head shows no bleed or mass CT of the head and neck shows no evidence of large vessel occlusion CBC with no leukocytosis, no anemia, no thrombocytopenia No evidence of coagulopathy BMP without evidence of significant electrolyte abnormalities, no anion gap, no acute kidney injury. LFTs show no evidence of hepatobiliary pathology. Lipase is wnl indicating no pancreatic inflammation. Urinalysis shows no evidence of urinary inflammation suggestive of UTI Ammonia pending The synthesis of the patient's history, physical exam, labs images are consistent with diffuse encephalopathy. Despite initial code stroke protocol for aphasia, new focal deficit within 24 hours I do not think the patient is having an acute CVA given lack of lateralizing signs and signs of diffuse encephalopathy. No clear precipitant for mental status change could be identified in the emergency department. Given the patient advanced age, change in mental status I opted to admit the patient for observation, MRI and further testing. Spoke to the hospitalist who agreed to accept the patient. The patient and/or family, caregivers express understanding. The patient and/or family, caregivers agrees with the plan. Shared decision making: I will have a discussion with the patient and or visitors regarding risk/benefits of further testing or admission. They will be made aware of of the risk/benefits inherent in this decision they will be given the opportunity to voice understanding. Total critical care time today provided was at least 0 minutes. This excludes separately billable procedures. Critical care time (if documented) is secondary to the patient having high probability of clinically significant/life threatening deterioration in the patient's condition which required my urgent intervention. Impression: 1. Altered mental status 2. History of dementia 3. History of type 2 diabetes Dispo: Admit to medicine This note was generated with [employer]ent dictation software. It may contain incorrect words, spelling, and punctuation that were not noted in review of the chart prior to signing. Lab Data Labs: Laboratory Results - last 24 hr 10/10/23 10/10/23 20:10 21:30 WBC 9.3 RBC 3.96 L Hgb 12.1 Hct 37.9 MCV 95.7 MCH 30.6 MCHC 31.9 L RDW Std Deviation 50.7 H RDW Coeff of [place]lin 14.6 Plt Count 485 H MPV 8.8 Immature Gran % (Auto) 1.400 H Neut % (Auto) 50.6 Lymph % (Auto) 33.1 [place] % (Auto) 11.3 H Eos % (Auto) 2.8 Baso % (Auto) 0.8 Absolute Neuts (auto) 4.7 Absolute Lymphs (auto) 3.08 Nucleated RBC % 0 PT 13.0 INR 1.0 APTT 39.0 H Sodium 138 Potassium 4.3 Chloride 103 Carbon Dioxide 27.0 Anion Gap 8 BUN 17 Creatinine 1.13 H Estim Creat Clear Calc 40.32 Est GFR (MDRD) Af Amer 59 L Est GFR (MDRD) Non-Af 49 L BUN/Creatinine Ratio 15.0 Glucose 96 Calcium 9.7 Total Bilirubin 0.30 Direct Bilirubin 0.08 AST 18 ALT 14 Alkaline Phosphatase 50 Troponin I High Sens 7 Total Protein 8.3 H Albumin 3.2 Globulin 5.1 H Lipase 39 Urine Color Yellow Urine Clarity Clear Urine pH 5.0 Ur Specific [place] 1.010 Urine Protein Negative Urine Glucose (UA) Normal Urine Ketones Negative Urine Occult Blood Negative Urine Nitrite Negative Urine Bilirubin Negative Urine Urobilinogen Normal Ur Leukocyte Esterase Negative Urine RBC 0 SEEN Urine WBC 0 SEEN Ur Squamous Epith Cells 0 SEEN Urine Bacteria 0 SEEN Urine Mucus 0 SEEN Radiography Diagnostic Testing: Clinical Impression(s) from Imaging Studies Head/Neck CTA 10/10/23 20:21 IMPRESSION: Normal CTA Head with contrast. Moderate (60%) right carotid stenosis. Mild (20%) left carotid stenosis. Patent vertebral arteries bilaterally. Electronically Signed: Tra Gil MD at 21:09 EST , ADDENDUM: 10/10/232116 IMPRESSION: Normal CTA Head with contrast. Moderate (60%) right carotid stenosis. Mild (20%) left carotid stenosis. Patent vertebral arteries bilaterally. N.B. : The above Results were Read Back by Tra Gil MD to Jermain Ramirez DO, and understanding confirmed on 10/10/2023 21:10:13 (ET). Electronically Signed: Tra Gil MD at 21:09 EST , Brain CT 10/10/23 20:26 IMPRESSION: Chronic involutional changes of the brain. Electronically Signed: Tra Gil MD at 20:50 EST , ADDENDUM: 10/10/232058 IMPRESSION: Chronic involutional changes of the brain. N.B. : The above Results were Read Back by Tra Gil MD to Jermain Ramirez DO, and understanding confirmed on 10/10/2023 20:52:16 (ET). Electronically Signed: Tra Gil MD at 20:50 EST Reading Location ID and State: [facility] / [place] Tel , Service support , Chest X-Ray 10/10/23 21:50 IMPRESSION: No active disease. Cardiomegaly. Electronically Signed: Tra Gil MD at 22:10 EST Reading Location ID and State: [id number] / [place] [facility] , Service support , Discharge Plan Triage Chief Complaint: Weakness ED Provider: Jermain Ramirez Dx/Rx/DC Orders Prescriptions: No Action propranolol 60 MG capsule 60 mg PO DAILY 0RF aspirin 81 MG tablet,chewable 81 mg PO DAILY@0800 0RF duloxetine 60 MG capsule 60 mg PO DAILY 30 Days 0RF ibuprofen 200 MG capsule 200 mg PO DAILY nortriptyline 50 MG capsule 50 mg PO QHS metformin 500 MG tablet 1,000 mg PO DAILY lisinopril 40 mg tablet 40 mg PO DAILY duloxetine 30 mg capsule,delayed release(DR/EC) 30 mg PO QHS Patient Comments: TAKE 1 CAPSULE BY MOUTH ONCE DAILY IN THE EVENING. TAKE ALONG WITH 60MG IN THE MORNING multivitamin [Daily Multi-Vitamin] Tablet 1 tab PO DAILY cyanocobalamin (vitamin B-12) [Vitamin B-12] 1,000 mcg tablet 1,000 mcg PO DAILY Probiotic Complex 25 billion cell -100 mg capsule 1 cap PO DAILY donepezil 5 MG tablet 10 mg PO QHS Primary Care Provider: Nanci Mead Referrals: Nanci Mead DO [Primary Care Provider] -
[2023-10-10 20:31] LABS: Absolute Lymphocyte Count 3.08 X10^3/uL (0.83-4.51); Absolute Neutrophil Count 4.7 X10^3/uL (2.0-7.7); Basophil# 0.07 X10^3/uL; Basophil% 0.8 % (0-1); Eosinophil# 0.26 X10^3/uL; Eosinophils% 2.8 % (0-5); Hematocrit 37.9 % (37-47); Hemoglobin 12.1 g/dL (12.0-15.0); Lymphocyte # 3.08 X10^3/ul (0.83-4.51); Lymphocyte % 33.1 % (19-41); Mean Corp Hgb Conc 31.9 g/dL (32-36); Mean Corpuscular Hgb 30.6 pg (27.0-32.0); Mean Corpuscular Volume 95.7 fL (81-99); Mean Platelet Vol. 8.8 fl (6.2-12.0); Monocyte# 1.05 X10^3/uL; Monocyte% 11.3 % (0-10); NRBC Flagged by Analyzer 0 % (0-5); Neutrophil # 4.71 X10^3/uL (2.7-7.7); Neutrophil % 50.6 % (47-70); Platelet Count 485 K/mm3 (150-450); RBC Distribution Width CV 14.6 % (11.6-14.6); RBC Distribution Width SD 50.7 fl (35.1-43.9); Red Blood Count 3.96 M/mm3 (4.2-5.4); White Blood Count 9.3 K/mm3 (4.4-11.0)
[2023-10-10 20:49] LABS: Anion Gap 8 (5-15); BUN 17 mg/dL (7-18); Calcium,Total 9.7 mg/dL (8.5-10.1); Chloride 103 mmol/L (98-107); Creatinine, Serum 1.13 mg/dL (0.55-1.02); EST Glomerular Filtration Rate 49 mL/min (>60); Est Glom Filt Rate - Afr Amer 59 mL/min (>60); Estimated Creatinine Clearance 40.32 ml/min; Glucose 96 mg/dL (74-106); Potassium 4.3 mmol/L (3.5-5.1); Sodium Level 138 mmol/L (136-145); Troponin-I HS 7 pg/mL (3.0-54.0)
--- NOTE | 2023-10-10 21:09 | ED.RN ---
PT'S DAUGHTER INFORMED THIS NURSE AND DR. GARCIA THAT THIS PAST WEEK PT HAS HAD INCREASED URINATION INCONTINENCE, PT ON SUNDAY HAD NO INTEREST IN WALKING WITH WALKER, PT JUST STAYED IN WHEELCHAIR. PT TODAY DID GET UP FOR BREAKFAST WITH ASSISTANCE FROM DAUGHTER, TOOK TWO STEPS OVER 20 MINUTES. PT HAD PUSHED HER HEAD BACK AND SHAKE PER DAUGHTER WHEN SEATED IN THE WHEELCHAIR. LAST KNOWN WELL WAS 0930 TODAY. DAUGHTER DID FEED PT DINNER AND PT WAS ABLE TO SWALLOW PER DAUGHTER. PT UNABLE TO FOLLOW COMMANDS, PT HAVING DIFFICULTY WITH TALKING.PT DID FINISH ANTIBIOTICS FOR COUGH THIS WEEK.
[2023-10-10 21:33] LABS: Bacteria 0 SEEN /hpf (None Seen); Mucous, Urine 0 SEEN /hpf (<or=2+); Red Blood Cells-Urine 0 SEEN /hpf (0-5); Squamous Epithelial Cells - UA 0 SEEN /hpf (5-10); White Blood Cells 0 SEEN /hpf (0-5)
[2023-10-10 21:38] LABS: Color, Urine Yellow (Yellow); Glucose, Dipstick Normal (Normal); Ketone-Dipstick Negative (Negative); Leukocyte Esterase-Dipstick Negative /ul (Negative); Nitrite-Dipstick Negative (Negative); Occult Blood-Urine Negative /ul (Negative); Protein-Dipstick Negative (Negative); Urine Bilirubin Dipstick Negative (Negative); Urine Clarity Clear (Clear); Urine Urobilinogen Normal (Normal)
[2023-10-10 21:39] LABS: AST(SGOT) 18 U/L (15-37); Alanine Aminotransfer ALT/SGPT 14 U/L (13-56); Albumin, Serum 3.2 g/dL (3.2-5.0); Alkaline Phosphatase 50 U/L (45-117); Bilirubin, Direct 0.08 mg/dL (0.00-0.30); Globulin 5.1 g/dL (2.2-4.2); Protein, Total 8.3 g/dL (6.4-8.2)
--- NOTE | 2023-10-10 21:42 | ED.RN ---
PT'S DAUGHTER REPORTED THAT LAST HS PT HAD A VERY RESTLESS NIGHT PT OTHER SIBLING. DR. GARCIA INFORMED OF PT'S IMPROVEMENT WITH MOVEMENT, FOLLOWING DIRECTION, SPEECH. DR. GARCIA INFORMED THIS NURSE TO CONTINUE WITH [facility] EVERY 4 HOURS.
--- NOTE | 2023-10-10 21:50 | RAD_ITS ---
STUDY: X-RAY CHEST REASON FOR EXAM: Female, 82 years old. Neuro deficit, acute, stroke suspected TECHNIQUE: Single AP portable view of the chest. COMPARISON: 08/07/2023 FINDINGS: The lungs are clear and expanded. There is no demonstrated pleural abnormality. There is moderate cardiac enlargement. Normal mediastinum and markos. Normal visualized pulmonary arteries. There is atherosclerotic tortuosity of the aortic arch and descending thoracic aorta. There is a dextroscoliosis of the thoracic spine. Normal visualized ribs, clavicles, and shoulders. There is no demonstrated abnormality of the visualized soft tissue structures of the upper abdomen. RAD/Chest 1 View IMPRESSION: No active disease. Cardiomegaly. Electronically Signed: Tra Gil MD at 22:10 EST ,
[2023-10-10 21:54] LABS: Lipase 39 U/L (13-75)
--- NOTE | 2023-10-10 22:36 | PCM.HP.STD ---
HPI - General General Date of Admission: 10/10/23 Date of Service: 10/10/23 Chief Complaint: Stroke Alert with AMS and Aphasia. HPI Narrative EMILY CHRISTIAN, is an 82 F with a past medical history of essential hypertension, hyperlipidemia, obesity; with BMI of 36.6 this admission, DM-2; of unknown control on Metformin, history of Dementia; on donepezil, history of TIA's, history of depression; on duloxetine and nortriptyline, migraine headaches, history of Left hip fracture and OA who presents to [facility] ER complaining of stroke like symptoms with aphasia and confusion. Ms. Christian is not a reliable historian at this time so information was gathered from chart, medical staff and computer. According to the records her symptoms began approximately 11 hours prior to arrival with the apparent abrupt-onset of altered mental status with dysarthria. Though she has chronic dementia she is typically able to walk independently - but today she was noted to have trouble getting around ~9:30 AM followed by difficulty speaking. The patient's daughter tried to feed her throughout the day but the patient was not able and then when she failed to improve her daughter decided to bring her in for further evaluation and treatment. There was no report of any recent fall or other acute illness or injury. There is also no report of associated headache, fever, chills, nausea, vomiting or abdominal pain - but she was noted to have increased urinary frequency with her daughter having to change her bedsheets frequently over the past 3 days. In the ER a 'stroke alert' was called with her initial head CT unremarkable for acute pathologic changes and she was then admitted to the CDU under observation status for a CVA workup for a stay that is expected to be less than 48 hours. [facility] Medical History Chronic pain Diabetes mellitus, type II HLD (hyperlipidemia) Hypertension Migraines Home Medications aspirin 81 mg chewable tablet 81 mg PO DAILY@0800 01/24/17 [Rx Last Taken 08/15/21] duloxetine 60 mg capsule,delayed release 60 mg PO DAILY 30 days 01/24/17 [Rx Last Taken 08/15/21] propranolol 60 mg capsule,24 hr,extended release 60 mg PO DAILY 01/24/17 [Rx Last Taken 08/15/21] ibuprofen 200 mg capsule 200 mg PO DAILY pain 06/02/20 [History Last Taken Unknown] metformin 500 mg tablet 1,000 mg PO DAILY diabetes 01/27/20 [History Last Taken 08/15/21] nortriptyline 50 mg capsule 50 mg PO QHS sleep 01/27/20 [History Last Taken 08/14/21] lisinopril 40 mg tablet 40 mg PO DAILY BP 08/15/21 [History Last Taken 08/15/21] L.acidophilus-B.animalis-B.bifidum 25 billion cell-FOS 100 mg capsule (Probiotic Complex) 1 cap PO DAILY 10/10/23 [History Last Taken Unknown] cyanocobalamin (vitamin B-12) 1,000 mcg tablet (Vitamin B-12) 1,000 mcg PO DAILY 10/10/23 [History Last Taken Unknown] donepezil 5 mg tablet 10 mg PO QHS 10/10/23 [History Last Taken Unknown] duloxetine 30 mg capsule,delayed release 30 mg PO QHS 10/10/23 [History Last Taken Unknown] multivitamin (Daily Multi-Vitamin tablet) 1 tab PO DAILY 10/10/23 [History Last Taken Unknown] Allergy/AdvReac Type Severity Reaction Status Date / Time Penicillins [PCN] Allergy Hives Verified 10/10/23 20:17 Surgical History History of appendectomy Social History Smoking Status: Never smoker alcohol intake: never substance use type: does not use ROS ROS Narrative A full ROS was not possible due to severe encephalopathy. Review of Systems ROS Unobtainable: due to encephalopathy Vital Signs Vital Signs Vital Signs: 10/10/23 20:18 10/10/23 20:24 10/10/23 20:40 Temperature 96.1 F L 96.1 F L Temperature Source Temporal Temporal Pulse Rate 86 86 Respiratory Rate 16 16 Respiratory Pattern Blood Pressure Blood Pressure Mean Pulse Ox 94 94 100 Oxygen Delivery Method Room Air Room Air Nasal Cannula Oxygen Flow Rate (L/min) 2 10/10/23 20:40 10/10/23 20:48 10/10/23 20:55 Temperature 96.1 F L Temperature Source Temporal Pulse Rate 86 76 Respiratory Rate 16 16 Respiratory Pattern Normal Blood Pressure 107/97 H 107/97 H Blood Pressure Mean 100 100 Pulse Ox 94 97 Oxygen Delivery Method Room Air Nasal Cannula Oxygen Flow Rate (L/min) 2 10/10/23 20:50 10/10/23 21:33 10/10/23 21:33 Temperature Temperature Source Pulse Rate 80 74 75 Respiratory Rate 16 17 16 Respiratory Pattern Blood Pressure 139/66 H 139/66 H Blood Pressure Mean 90 90 Pulse Ox 85 99 98 Oxygen Delivery Method Room Air Nasal Cannula Nasal Cannula Oxygen Flow Rate (L/min) 2 2 10/10/23 22:04 Temperature Temperature Source Pulse Rate 77 Respiratory Rate 17 Respiratory Pattern Blood Pressure 125/91 H Blood Pressure Mean 102 Pulse Ox 98 Oxygen Delivery Method Nasal Cannula Oxygen Flow Rate (L/min) 2 Weight Weight: 206 lb 9.17 oz Body Mass Index (BMI) 36.6 Physical Exam Const average body habitus Constitutional Narrative: Patient is lethargic and unable to speak. Orientation / Consciousness: confused, disoriented and lethargic HEENT normocephalic, head/scalp atraumatic and hearing grossly normal bilaterally HEENT Narrative: Mucous membranes appear dry. Eyes PERRL and EOMs intact bilaterally Neck no lymphadenopathy and supple Resp normal respiratory effort, no retractions, no use of accessory muscles and clear to auscultation bilaterally Cardio regular rate and regular rhythm GI normal to inspection, nondistended, normoactive bowel sounds, soft to palpation, non-tender and non-distended Extremity normal to inspection Skin Skin Narrative: Patient has no evidence of rash at this time. Neuro Neuro Narrative: Patient is lethargic, confused and appears to be unable to speak. Psych Psych Narrative: Patient is lethargic, confused and appears to be unable to speak. Results Medical Records Data Attestation: I reviewed the patient's medical records Lab / Micro Data Attestation: I reviewed the patient's lab results. 10/10/23 20:10 10/10/23 20:10 Labs: Laboratory Results - last 24 hr 10/10/23 20:10: WBC 9.3, RBC 3.96 L, Hgb 12.1, Hct 37.9, MCV 95.7, MCH 30.6, MCHC 31.9 L, RDW Std Deviation 50.7 H, RDW Coeff of Maylin 14.6, Plt Count 485 H, MPV 8.8, Immature Gran % (Auto) 1.400 H, Neut % (Auto) 50.6, Lymph % (Auto) 33.1, [place] % (Auto) 11.3 H, Eos % (Auto) 2.8, Baso % (Auto) 0.8, Absolute Neuts (auto) 4.7, Absolute Lymphs (auto) 3.08, Nucleated RBC % 0, PT 13.0, INR 1.0, APTT 39.0 H, Sodium 138, Potassium 4.3, Chloride 103, Carbon Dioxide 27.0, Anion Gap 8, BUN 17, Creatinine 1.13 H, Estim Creat Clear Calc 40.32, Est GFR (MDRD) Af Amer 59 L, Est GFR (MDRD) Non-Af 49 L, BUN/Creatinine Ratio 15.0, Glucose 96, Calcium 9.7, Total Bilirubin 0.30, Direct Bilirubin 0.08, AST 18, ALT 14, Alkaline Phosphatase 50, Troponin I High Sens 7, Total Protein 8.3 H, Albumin 3.2, Globulin 5.1 H, Lipase 39 10/10/23 21:30: Urine Color Yellow, Urine Clarity Clear, Urine pH 5.0, Ur Specific [place] 1.010, Urine Protein Negative, Urine Glucose (UA) Normal, Urine Ketones Negative, Urine Occult Blood Negative, Urine Nitrite Negative, Urine Bilirubin Negative, Urine Urobilinogen Normal, Ur Leukocyte Esterase Negative, Urine RBC 0 SEEN, Urine WBC 0 SEEN, Ur Squamous Epith Cells 0 SEEN, Urine Bacteria 0 SEEN, Urine Mucus 0 SEEN Imaging Radiology Impression Head/Neck CTA 10/10/23 20:21 IMPRESSION: Normal CTA Head with contrast. Moderate (60%) right carotid stenosis. Mild (20%) left carotid stenosis. Patent vertebral arteries bilaterally. Electronically Signed: Tra Gil MD at 21:09 EST , ADDENDUM: 10/10/232116 IMPRESSION: Normal CTA Head with contrast. Moderate (60%) right carotid stenosis. Mild (20%) left carotid stenosis. Patent vertebral arteries bilaterally. N.B. : The above Results were Read Back by Tra Gil MD to Jermain Ramirez DO, and understanding confirmed on 10/10/2023 21:10:13 (ET). Electronically Signed: Tra Gil MD at 21:09 EST Reading Location ID and State: [id number] / [employer] Tel , Service support , Brain CT 10/10/23 20:26 IMPRESSION: Chronic involutional changes of the brain. Electronically Signed: Tra Gil MD at 20:50 EST Reading Location ID and State: [id number] / [employer] Tel , Service support , ADDENDUM: 10/10/232058 IMPRESSION: Chronic involutional changes of the brain. N.B. : The above Results were Read Back by Tra Gil MD to Jermain Ramirez DO, and understanding confirmed on 10/10/2023 20:52:16 (ET). Electronically Signed: Tra Gil MD at 20:50 EST Reading Location ID and State: [id number] / [employer] Tel , Service support , Chest X-Ray 10/10/23 21:50 IMPRESSION: No active disease. Cardiomegaly. Electronically Signed: Tra Gil MD at 22:10 EST Reading Location ID and State: [id number] / [employer] Tel , Service support , Assessment & Plan Assessment/Plan (1) Brain TIA: (2) Acute alteration in mental status: PLAN: Plan 1. TIA vs CVA; with persistent lethargy, confusion and inability to speak in the setting of a known history of TIA's - Admit to CDU under observation status. Check MRI of the brain to confirm suspicion. Also check carotid doppler to evaluate for stenosis and check echocardiogram to evaluate LVEF. Give aspirin MI plus we will give statin if patient can tolerate. Check Lipid Profile this admission. Check B12 and Folate levels to evaluate for potentially reversible causes of cognitive decline. Minimize DRAPERY CUTTER MACHINE-active medications. Finally, we will consult [facility] teleneurology to see this patient on-rounds this admission with help appreciated in advance. 2. Chronic Dementia; on donepezil complicating #1 - Continue home regimen as previous. 3. History of depression; on duloxetine and nortriptyline - Restart these agents when patient can safely tolerate oral intake. 4. DM-2; of unknown control on Metformin - Hold Metformin for 72 hours with recent IV contrast dye. FSBS q. 6 hours plus SSI. Check HgbA1c. 5. Essential hypertension - Allow for 'permissive hypertension' until CVA is definitively ruled out. 6. Hyperlipidemia - Resume statin when patient can tolerate oral intake. 7. Obesity; with BMI of 36.6 this admission - Weight loss will be recommended. Check TSH in light of #1. 8. Migraine headaches - Stable with no evidence of recurrence at this time. 9. History of Left hip fracture - Noted. 10. OA - Give Tylenol prn. 11. DVT prophylaxis - Lovenox 40 mg sq daily plus SCD's. Total time: Approximately 45 minutes. Charges/Coding Visit Charges OBSV E&M: 08387 Observ/hosp same date L1
[2023-10-10 23:01] LABS: Ammonia < 10.0 umol/L (11-32)
--- NOTE | 2023-10-10 23:34 | CDU_ITS ---
Reason For Study: Altered Mental Status / Stenosis Rt. Velocities/BP Lt. Velocities/BP Prox CCA 47.6/11.3 cm/sec. Prox CCA 75.1/10.2 cm/sec. Mid CCA 50.9/10.2 cm/sec. Mid CCA 74.0/14.6 cm/sec. Dist CCA 63.0/14.6 cm/sec. Dist CCA 70.7/15.7 cm/sec. Prox ICA 70.7/16.8 cm/sec. Prox ICA 59.7/13.5 cm/sec. Mid ICA 79.1/22.5 cm/sec. Mid ICA 71.8/14.6 cm/sec. Dist ICA 53.7/15.1 cm/sec. Dist ICA 70.7/20.1 cm/sec. Rt. ICA/CCA = 1.6. Lt. ICA/CCA = 1.0. Prox ECA 84.4/14.5 cm/sec. Prox ECA 77.3/10.2 cm/sec. Rt. Vert. 33.3/8.0 cm/sec. Lt. Vert. 44.3/11.3 cm/sec. Right Extracranial There is intimal thickening but no significant atherosclerotic plaque noted in the right common carotid artery. There is heterogeneous, irregular atherosclerotic plaque noted in the right internal carotid artery. There is intimal thickening but no significant atherosclerotic plaque noted in the right external carotid artery. Antegrade flow is noted in the right vertebral artery. Left Extracranial There is intimal thickening but no significant atherosclerotic plaque noted in the left common carotid artery. There is heterogeneous, irregular atherosclerotic plaque noted in the left internal carotid artery. There is heterogeneous, irregular atherosclerotic plaque noted in the left external carotid artery. Antegrade flow is noted in the left vertebral artery. Procedure Carotid Duplex 82164. This is a Carotid Duplex examination using B-mode, color flow and specral Doppler. The exam was of poor technical quality due to patient positioning and patient anatomy. The study was technically difficult. Exam performed portable in patient room. VL/Carotid Duplex Ultrasound Interpretation Summary Mild (<50%) stenosis right extracranial internal carotid. Mild (<50%) stenosis left extracranial internal carotid. Patent and antegrade vertebrals bilaterally. Ordering Physician: Anjel Hammer Referring Physician: Nanci Mead M.D. Performed By: Clayton Perez RVT
--- NOTE | 2023-10-10 23:34 | ECHOD_ITS ---
Reason For Study: TIA/CVA Procedure This was a 2D Doppler, Color Flow transthoracic echocardiogram. The study was technically difficult. Exam performed portable in patient room. Left Ventricle Normal LV size. The estimated ejection fraction is 65 %. No evidence for diastolic dysfunction. No regional wall motion abnormalities noted. Right Ventricle Normal RV size. Normal systolic function. Atria Normal left atrium. Normal right atrium. No doppler evidence for ASD. Mitral Valve There is no mitral valve stenosis. No mitral valve insufficiency. Tricuspid Valve There is no tricuspid stenosis. Unable to estimate RV systolic pressure due to inadequate jet, pulmonary artery pressure probably normal. Aortic Valve Trisinus/trileaflet aortic valve. There is no aortic stenosis. Mild (1+) aortic valve insufficiency. Pulmonic Valve There is no pulmonic valvular stenosis. No pulmonic valve insufficiency. Great Vessels Normal aortic root. Pericardium/Pleural No pericardial effusion. MMode/2D Measurements & Calculations LVIDd: 4.1 cm IVSd: 1.3 cm Ao root diam: 3.6 cm LVIDs: 2.7 cm LVPWd: 1.3 cm RVDd: 3.3 cm FS: 35.5 % LAV(MOD-sp4): 32.9 ml LVAd ap4: 24.8 cm2 LVAd ap2: 19.0 cm2 LVLd ap4: 7.5 cm LVLd ap2: 7.3 cm EDV(MOD-sp4): 66.5 ml EDV(MOD-sp2): 41.3 ml EDV(sp4-el): 69.7 ml EDV(sp2-el): 42.1 ml LVAs ap4: 12.3 cm2 LVAs ap2: 10.8 cm2 LVLs ap4: 6.0 cm LVLs ap2: 6.4 cm ESV(MOD-sp4): 22.3 ml ESV(MOD-sp2): 15.6 ml ESV(sp4-el): 21.7 ml ESV(sp2-el): 15.5 ml EF(MOD-sp4): 66.5 % EF(MOD-sp2): 62.2 % EF(sp4-el): 68.8 % SV(MOD-sp4): 44.2 ml SV(MOD-sp2): 25.7 ml SV(sp4-el): 48.0 ml LA dimension(2D): 3.2 cm TAPSE: 2.5 cm LA A4 area: 14.4 cm2 Time Measurements MV dec time: 0.11 sec Doppler Measurements & Calculations MV E max andrea: 42.3 cm/sec Lat Peak E' Andrea: 4.9 cm/sec Med Peak E' Andrea: 6.9 cm/sec MV A max andrea: 118.8 cm/sec E/E' lat: 8.7 E/E' med: 6.2 MV E/A: 0.36 Ao V2 max: 147.1 cm/sec AI max andrea: 485.0 cm/sec LV V1 max: 101.3 cm/sec Ao max P.7 mmHg AI max P.1 mmHg LV V1 max P.1 mmHg Ao V2 mean: 101.7 cm/sec AI dec slope: 336.1 cm/sec2 LV V1 mean P.4 mmHg Ao mean P.7 mmHg AI P1/2t: 422.6 msec LV V1 mean: 73.2 cm/sec Ao V2 VTI: 33.0 cm LV V1 VTI: 26.5 cm AV (velocity ratio): 0.80 PA V2 max: 73.0 cm/sec TR max andrea: 270.2 cm/sec PA V2 mean: 47.4 cm/sec TR max P.2 mmHg ECHO/Echo Complete Interpretation Summary The estimated ejection fraction is 65 %. No evidence for diastolic dysfunction. Mild (1+) aortic valve insufficiency. Ordering Physician: Anjel Hamemr Referring Physician: Nanci Mead Performed By: Ruth Hurtado, LUZMA, RVT
--- NOTE | 2023-10-10 23:34 | MRI_ITS ---
STUDY: MRI BRAIN WITHOUT CONTRAST REASON FOR EXAM: Female, 82 years old. Evaluate for CVA with ams and aphasia. TECHNIQUE: Standardized multiplanar fat and water weighted pulse sequences were obtained. COMPARISON: MRI of the brain dated August 15, [address] dated October 10, 2023 FINDINGS: There is mild cerebral atrophy with widening of the extra-axial spaces and ventricular dilatation. There are multiple white matter hyperintensities, distributed throughout the deep white matter tracts of the cerebral hemispheres, consistent with moderate chronic white matter ischemic changes. There is no evidence for recent intracranial ischemia or other cause of cytotoxic edema on diffusion weighted imaging (DWI). Normal T2* images of the brain without demonstrated susceptibility artifact. There is no demonstrated hemosiderin stain. Patchy ischemic changes are present throughout the bilateral basal ganglia. Normal thalami. There is no extra-axial fluid accumulation. Normal flow voids within the major intracranial circulation suggesting patency by spin echo criteria. Normal sella turcica, pituitary gland, infundibular stalk, optic chiasm and hypothalamus. Normal tectal plate and pineal gland. There are chronic white matter ischemic changes of the jay. The midbrain and medulla are otherwise normal. Normal cerebellum. Normal basal cisterns. Normal bilateral temporal bones. Normal bilateral internal auditory canals. No demonstrated orbital abnormality, within the constraints of a routine brain study. There is mucoperiosteal inflammatory disease of the paranasal sinuses consistent with mild chronic sinusitis. Normal calvarium and skull base. Normal visualized soft tissue structures. Normal visualized upper cervical spine. MRI/Brain without Contrast IMPRESSION: 1. Involutional and chronic ischemic changes of the brain, as described above. Electronically Signed: Christiano Keen MD at 12:31 EST Reading Location ID and State: [facility] / [place] , Service support ,
[2023-10-11] VITALS (8 sets, daily range): BP systolic 141–200; BP diastolic 80–100; PULSE 77–99; RESP 16–18; TEMP 36.1–36.7; O2SAT 94–99; BMI 30.4
[2023-10-11 00:26] LABS: Thyroid Stim Hormone (TSH) 1.91 uIU/mL (0.358-3.74)
[2023-10-11 00:33] LABS: Amphetamine Urine VISTA NEGATIVE (<1000 ng/mL); Barbiturate Urine VISTA NEGATIVE (< 200 ng/mL); Benzodiazepine Urine VISTA NEGATIVE (< 200 ng/mL); Cocaine Urine VISTA NEGATIVE (< 300 ng/mL); Ecstacy Urine VISTA NEGATIVE (< 500 ng/mL); Methadone Urine VISTA NEGATIVE (< 300 ng/mL); PCP Urine VISTA NEGATIVE (< 25 ng/mL); THC Urine VISTA NEGATIVE (< 50 ng/mL); Vista UDS pH Range 5
[2023-10-11 07:54] LABS: Cholesterol 212 mg/dL (200); High Density Lipoprotein 47 mg/dL; Triglycerides 115 mg/dL; Very Low Density Lipoprotein 23 mg/dL (5-40)
--- NOTE | 2023-10-11 09:25 | CASEMGMT ---
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 INNA [place]
--- NOTE | 2023-10-11 09:30 | PN.HOSP_ITS ---
Reason for Visit Reason for Visit: Diagnoses Transient cerebral ischemic attack, unspecified (10/10/23) Altered mental status, unspecified (10/10/23) Subjective Subjective More alert today, though her daughter states that she is still confused. Objective Data Objective Data Vital Signs: Vital Signs Temp Pulse Resp BP Pulse Ox O2 Del Method O2 Flow Rate 36.4 C L 88 16 160/88 H 94 Room Air 2 10/11/23 05:41 10/11/23 05:41 10/11/23 05:41 10/11/23 05:41 10/11/23 05:41 10/11/23 05:41 10/11/23 01:45 Oxygen Flow Rate (L/min) 2 Oxygen Delivery Method Room Air Weight: 88 kg Body Mass Index (BMI) 30.4 Intake & Output: Intake and Output for Last 24 Hours 10/09/23 10/10/23 10/11/23 23:59 23:59 23:59 Output Total 100 / 100 Balance -100 / -100 Lab / Micro Data 10/10/23 20:10 10/10/23 20:10 Labs: Laboratory Results - last 24 hr 10/10/23 20:10: WBC 9.3, RBC 3.96 L, Hgb 12.1, Hct 37.9, MCV 95.7, MCH 30.6, MCHC 31.9 L, RDW Std Deviation 50.7 H, RDW Coeff of Maylin 14.6, Plt Count 485 H, MPV 8.8, Immature Gran % (Auto) 1.400 H, Neut % (Auto) 50.6, Lymph % (Auto) 33.1, [place] % (Auto) 11.3 H, Eos % (Auto) 2.8, Baso % (Auto) 0.8, Absolute Neuts (auto) 4.7, Absolute Lymphs (auto) 3.08, Nucleated RBC % 0, PT 13.0, INR 1.0, APTT 39.0 H, Sodium 138, Potassium 4.3, Chloride 103, Carbon Dioxide 27.0, Anion Gap 8, BUN 17, Creatinine 1.13 H, Estim Creat Clear Calc 40.32, Est GFR (MDRD) Af Amer 59 L, Est GFR (MDRD) Non-Af 49 L, BUN/Creatinine Ratio 15.0, Glucose 96, Calcium 9.7, Total Bilirubin 0.30, Direct Bilirubin 0.08, AST 18, ALT 14, Alkaline Phosphatase 50, Troponin I High Sens 7, Total Protein 8.3 H, Albumin 3.2, Globulin 5.1 H, Lipase 39, TSH 1.91 10/10/23 21:30: Urine Color Yellow, Urine Clarity Clear, Urine pH 5.0, Ur Specific [place] 1.010, Urine Protein Negative, Urine Glucose (UA) Normal, Urine Ketones Negative, Urine Occult Blood Negative, Urine Nitrite Negative, Urine Bilirubin Negative, Urine Urobilinogen Normal, Ur Leukocyte Esterase Negative, Urine RBC 0 SEEN, Urine WBC 0 SEEN, Ur Squamous Epith Cells 0 SEEN, Urine Bacteria 0 SEEN, Urine Mucus 0 SEEN, Urine Opiates Screen NEGATIVE, Urine Methadone Screen NEGATIVE, Ur Barbiturates Screen NEGATIVE, Ur Phencyclidine Scrn NEGATIVE, Ur Amphetamines Screen NEGATIVE, MDMA (Ecstasy) Screen NEGATIVE, U Benzodiazepines Scrn NEGATIVE, Urine Cocaine Screen NEGATIVE, U Cannabinoids Screen NEGATIVE, Ur Drug Screen Comment 10/10/23 22:16: Ammonia < 10.0 L 10/11/23 06:40: Triglycerides 115, Cholesterol 212 H, LDL Cholesterol 142 H, VLDL Cholesterol 23, HDL Cholesterol 47 Micro: Microbiology 10/10/23 22:00 Mucosa - Nose SARS-CoV-2, Influenza & RSV (PCR) - Final Radiography Diagnostic Testing: Radiology Impression Head/Neck CTA 10/10/23 20:21 IMPRESSION: Normal CTA Head with contrast. Moderate (60%) right carotid stenosis. Mild (20%) left carotid stenosis. Patent vertebral arteries bilaterally. Electronically Signed: Tra Gil MD at 21:09 EST , ADDENDUM: 10/10/232116 IMPRESSION: Normal CTA Head with contrast. Moderate (60%) right carotid stenosis. Mild (20%) left carotid stenosis. Patent vertebral arteries bilaterally. N.B. : The above Results were Read Back by Tra Gil MD to Jermain Ramirez DO, and understanding confirmed on 10/10/2023 21:10:13 (ET). Electronically Signed: Tra Gil MD at 21:09 EST Reading Location ID and State: [id number] / [email or web address] Tel , Service support , Brain CT 10/10/23 20:26 IMPRESSION: Chronic involutional changes of the brain. Electronically Signed: Tra Gil MD at 20:50 EST Reading Location ID and State: [email or web address] / [email or web address] Tel , Service support , ADDENDUM: 10/10/232058 IMPRESSION: Chronic involutional changes of the brain. N.B. : The above Results were Read Back by Tra Gil MD to Jermain Ramirez DO, and understanding confirmed on 10/10/2023 20:52:16 (ET). Electronically Signed: Tra Gil MD at 20:50 EST Reading Location ID and State: [email or web address] Tel , Service support , Chest X-Ray 10/10/23 21:50 IMPRESSION: No active disease. Cardiomegaly. Electronically Signed: Tra Gil MD at 22:10 EST Reading Location ID and State: [id number] / [email or web address] Tel , Service support , Physical Exam Const alert and no apparent distress HEENT head/scalp atraumatic Resp normal respiratory effort, no retractions, no use of accessory muscles and clear to auscultation bilaterally Cardio regular rate, regular rhythm, S1 normal heart sound and S2 normal heart sound GI normal to inspection, nondistended, normoactive bowel sounds, soft to palpation, non-tender and non-distended Extremity normal to inspection Neuro moves all extremities and no focal motor deficits Sensorium / Orientation: awake, alert and oriented to person; Negative for oriented to place or oriented to time Speech: speech normal Motor Exam: strength 5/5 throughout Psych affect normal Assessment & Plan Assessment/Plan (1) Brain TIA: (2) Acute alteration in mental status: PLAN: Plan Aphasia/Dysarthria * CVA/TIA ruled out. MRI brain negative. Carotid US negative. * UA negative for infection * Suspect fluctuation of dementia due to unspecified reason. Though may have been some sundowning. Daughter states that the patient had been up longer than usual yesterday. Chronic conditions: * Chronic Dementia; on donepezil complicating #1 - Continue home regimen as previous. * History of depression; on duloxetine and nortriptyline - Restart these agents when patient can safely tolerate oral intake. * DM-2; of unknown control on Metformin - Hold Metformin for 72 hours with recent IV contrast dye. FSBS q. 6 hours plus SSI. Check HgbA1c. * Essential hypertension - Allow for 'permissive hypertension' until CVA is definitively ruled out. * hyperlipidemia - Resume statin when patient can tolerate oral intake. * Obesity; with BMI of 36.6 this admission - Weight loss will be recommended. Check TSH in light of #1. * Migraine headaches - Stable with no evidence of recurrence at this time. * History of Left hip fracture - Noted. * OA - Give Tylenol prn. DVT prophylaxis - Lovenox 40 mg sq daily plus SCD's. Charges/Coding Visit Charges Inpatient E&M: 62020 Subs Hosp L2
[2023-10-11] MEDS: Enoxaparin 40 MG/0.4 ML Syringe SC (09:33)
--- NOTE | 2023-10-11 11:30 | CASEMGMT ---
RN?CM?EDUCATION ADMINISTRATOR?CM?to room to meet with patient and daughter for initial transition planning/care coordination?assessment.?RN?CM?introduced self and role at [facility].? Pt resting in bed in no distress at this time.? Pt is alert. Hx dementia. Dtr, Lynn, @ bedside and provided the following infomation. Care providers, pharmacy, and demographics verified/updated at this time. PCP: Dr Mead Specialists: none Preferred Pharmacy: [facility] Insurance: AA Prescription Benefit:?none LNOK: , Mark. 5 adult children Living Arrangements: Lives w/ in 2-story home w/one step to enter. FFSU. has health issues. Family takes turns providing 24/hr total-care for pt. They are also in the process w/hiring private-duty caregiver. Transportation:?hire drivers DME: Has the following DME:?tub bench, BSC, RTS, hospital bed, rails/grab bars, walker, rollator, W/C, functioning glucometer w/supplies, [place] lift. HHC/SNF: Has been to [facility] RU in the past and [facility]. Hospice: Pt was on [facility], but was discharged from hospice during the spring months last year (2022) d/t pt was not declining, per Lynn. She states since then, pt has declined more, especially in the past couple of weeks. She states pt has not been bearing weight and it usually takes 2-3 family members to help transfer her. Discussed discharge planning. Lynn states, I don't know how we could possibly care for her properly if she would go home . Discussed options of RU vs SNF vs Hospice, as Lynn stated they may consider another hospice referral. She states she will discuss things over w/her family and would like a list of RU and SNF options. MRI and therapy evals pending. RN JOSE M informed her SW or CM would f/u with her after MRI and therapy evals/recommendations received. She voices understanding. PLAN:??TBD by MRI results and progress w/therapy. Clarence BSN?RN?CM
--- NOTE | 2023-10-11 11:34 | CASEMGMT ---
Discharge Planning A list of?SNF and RU providers including quality and resource use data and consistent with the patient's preferred geographic region, medical needs, and insurance network was created in [employer] Guide.? This list was provided to the SW. Anastasia Lopez Discharge Planning Asst.
[2023-10-11] MEDS: Atorvastatin Calcium 40 MG Tablet PO (19:57)
[2023-10-11] MEDS: Nortriptyline 25 MG Capsule 50 MG PO (19:57)
[2023-10-11] MEDS: Donepezil HCl 10 MG Tablet PO (19:57)
[2023-10-11] MEDS: DULoxetine Hcl 30 MG Capsule PO (19:57)
--- NOTE | 2023-10-11 22:03 | CON.PCM.NE_ITS ---
Assessment and Plan: Neuro Assessment/Plan EMILY JIANG is a 82 F with a past medical history of HTN, HLD and dementia being evaluated by Teleneurology for acute encephalopathy, Exam improved overnight, she seems back to her baseline, infectious work up is negative MRI showed no acute stroke Plan: MRI negative event is less likely to be due TIA or cerebrovascular events, cont ASA, check b12, folate, ammonia, TSH routine EEG PT/OT rehab evaluation follow up with neurology on discharge HPI Consult Data Date of Consult: 10/11/23 HPI Narrative HPI Narrative: EMILY JIANG, is a 82 F with hx of HTN, HLD, DM, Dementia who presented with altered mental status, Stroke activation was called, pt was encephalopathic in the ED with none focal exam. CT head with no acute changes and CTA with no LVO. she was admitted to medicine for acute encephlaopthy work up, exam improved over ngiht, MRI is negative [facility] Medical History Chronic pain Diabetes mellitus, type II HLD (hyperlipidemia) Hypertension Migraines Home Medications aspirin 81 mg chewable tablet 81 mg PO DAILY@0800 01/24/17 [Rx Last Taken 08/15/21] duloxetine 60 mg capsule,delayed release 60 mg PO DAILY 30 days 01/24/17 [Rx Last Taken 08/15/21] propranolol 60 mg capsule,24 hr,extended release 60 mg PO DAILY 01/24/17 [Rx Last Taken 08/15/21] ibuprofen 200 mg capsule 200 mg PO DAILY pain 01/27/20 [History Last Taken Unknown] metformin 500 mg tablet 1,000 mg PO DAILY diabetes 01/27/20 [History Last Taken 08/15/21] nortriptyline 50 mg capsule 50 mg PO QHS sleep 01/27/20 [History Last Taken 08/14/21] lisinopril 40 mg tablet 40 mg PO DAILY BP 08/15/21 [History Last Taken 08/15/21] L.acidophilus-B.animalis-B.bifidum 25 billion cell-FOS 100 mg capsule (Probiotic Complex) 1 cap PO DAILY 10/10/23 [History Last Taken Unknown] cyanocobalamin (vitamin B-12) 1,000 mcg tablet (Vitamin B-12) 1,000 mcg PO DAILY 10/10/23 [History Last Taken Unknown] donepezil 5 mg tablet 10 mg PO QHS 10/10/23 [History Last Taken Unknown] duloxetine 30 mg capsule,delayed release 30 mg PO QHS 10/10/23 [History Last Taken Unknown] multivitamin (Daily Multi-Vitamin tablet) 1 tab PO DAILY 10/10/23 [History Last Taken Unknown] Allergy/AdvReac Type Severity Reaction Status Date / Time Penicillins [PCN] Allergy Hives Verified 10/10/23 20:17 Surgical History History of appendectomy Social History Smoking Status: Never smoker alcohol intake: never substance use type: does not use Vital Signs Vital Signs Vital Signs: 10/10/23 22:04 10/10/23 22:59 10/11/23 00:37 Temperature 96.7 F L 97.6 F L Temperature Source Temporal Pulse Rate 77 74 77 Pulse Strength Respiratory Rate 17 15 18 Respiratory Effort Respiratory Depth Respiratory Pattern Blood Pressure 125/91 H 146/99 H Blood Pressure [BP] 200/100 H Blood Pressure Mean 102 114 Blood Pressure Mean [BP] 133 Blood Pressure Source Blood Pressure Source [BP] Monitor Blood Pressure Position Blood Pressure Position [BP] Semi-Fowlers Blood Pressure Location Blood Pressure Location [BP] Right Arm Pulse Ox 98 94 98 Oxygen Delivery Method Nasal Cannula Nasal Cannula Oxygen Flow Rate (L/min) 2 2 10/11/23 01:05 10/11/23 01:45 10/11/23 05:41 Temperature 97.5 F L 97.5 F L Temperature Source Temporal Temporal Pulse Rate 77 88 Pulse Strength Respiratory Rate 18 16 Respiratory Effort Respiratory Depth Respiratory Pattern Blood Pressure 180/89 H 160/88 H Blood Pressure [BP] Blood Pressure Mean 119 112 Blood Pressure Mean [BP] Blood Pressure Source Monitor Monitor Blood Pressure Source [BP] Blood Pressure Position Semi-Fowlers Semi-Fowlers Blood Pressure Position [BP] Blood Pressure Location Right Arm Right Arm Blood Pressure Location [BP] Pulse Ox 98 97 94 Oxygen Delivery Method Nasal Cannula Nasal Cannula Room Air Oxygen Flow Rate (L/min) 2 2 10/11/23 09:27 10/11/23 07:33 02/15/24 16:10 Temperature 98.1 F 96.9 F L Temperature Source Oral Temporal Pulse Rate 80 99 Pulse Strength Respiratory Rate 16 16 Respiratory Effort Respiratory Depth Respiratory Pattern Blood Pressure 185/80 H 141/88 H Blood Pressure [BP] Blood Pressure Mean 115 105 Blood Pressure Mean [BP] Blood Pressure Source Monitor Monitor Blood Pressure Source [BP] Blood Pressure Position Supine Sitting Blood Pressure Position [BP] Blood Pressure Location Right Arm Right Arm Blood Pressure Location [BP] Pulse Ox 97 96 99 Oxygen Delivery Method Room Air Nasal Cannula Room Air Oxygen Flow Rate (L/min) 2 10/11/23 20:58 10/11/23 20:58 10/11/23 21:00 Temperature 96.9 F L Temperature Source Temporal Pulse Rate 93 Pulse Strength Normal (2+) Respiratory Rate 16 Respiratory Effort Normal Respiratory Depth Normal Respiratory Pattern Normal Blood Pressure 147/81 H Blood Pressure [BP] Blood Pressure Mean 103 Blood Pressure Mean [BP] Blood Pressure Source Monitor Blood Pressure Source [BP] Blood Pressure Position Semi-Fowlers Blood Pressure Position [BP] Blood Pressure Location Left Arm Blood Pressure Location [BP] Pulse Ox 96 Oxygen Delivery Method Room Air Room Air Oxygen Flow Rate (L/min) Weight Weight: 88 kg Body Mass Index (BMI) 30.4 EEG Results Procedure Details EEG Procedure Details: EMILY JIANG is a 82 year old F with a past medical history of , who presents for evaluation of Electroencephalogram on DATE at TIME NIHSS NIHSS Nursing Documentation NIHSS Nursing Documentation: NIHSS: Ischemic Stroke/TIA Start: 10/11/23 00:35 Text: For PCU Patients: NIH and Neuro Check every 4 Status: Complete hours and PRN Freq: [id number] Protocol: Activity Type Activity Date Activity User E-sign Co-sign Detail Recorded Client Recorded Date Recorded By Document 10/11/23 10:00 LRM Desktop 10/11/23 10:16 LRM 10/11/23 10:00 NIH Stroke Scale [NIHSS] A score of 0 is normal or asymptomatic . Total possible score is 42. Inpatient: RN or Physician to activate a stroke alert for onset of new stroke symptoms or with NIHSS increase >/= 3 points. Following change in neurological status, NIHSS will be performed per physician order or more frequently PRN. -1a. Level of Consciousness Alert; keenly responsive -1b. LOC Questions Answers one question correctly. -1c. LOC Commands Performs both tasks correctly . -2. Best Gaze Normal -3. Visual No visual loss -4. Facial Palsy Normal symmetrical movements -5a. Left Arm No drift; arm holds 90 (or 45 ) degrees for full 10 seconds -5b. Right Arm No drift; arm holds 90 (or 45 ) degrees for full 10 seconds -6a. Left Leg No drift; leg holds 30-degree position for full 5 seconds -6b. Right Leg No drift; leg holds 30-degree position for full 5 seconds -7. Limb Ataxia Absent -8. Sensory Normal; no sensory loss -9. Best Language Mild-to- moderate aphasia; -10. Dysarthria Normal -11. Extinction and Inattention No abnormality -Total 2 Query Text:A score of 0 is normal or asymptomatic. Total possible score is 42 . ED: Notify Physician for NIHSS increase by > / = 3 points. Inpatient: RN or Physician to activate a stroke alert for NIHSS increase of > / = 3 points. Coma Scale [Assess] -Eye Opening Spontaneous -Motor Obeys Commands -Verbal Confused [Total] -Coma Scale Total 14 Physical Exam Neuro Neuro Narrative: she is awake alert oriented to self, place and kenw the month, face symmetric, follows commands, language intact, move all ext antigravity with no drift Lab / Micro Data 10/10/23 20:10 10/10/23 20:10 Labs: Laboratory Results - last 24 hr 10/10/23 20:10: TSH 1.91 10/10/23 21:30: Urine Opiates Screen NEGATIVE, Urine Methadone Screen NEGATIVE, Ur Barbiturates Screen NEGATIVE, Ur Phencyclidine Scrn NEGATIVE, Ur Amphetamines Screen NEGATIVE, MDMA (Ecstasy) Screen NEGATIVE, U Benzodiazepines Scrn NEGATIVE, Urine Cocaine Screen NEGATIVE, U Cannabinoids Screen NEGATIVE, Ur Drug Screen Comment 10/10/23 22:16: Ammonia < 10.0 L 10/11/23 06:40: Triglycerides 115, Cholesterol 212 H, LDL Cholesterol 142 H, VLDL Cholesterol 23, HDL Cholesterol 47 Micro: Microbiology 10/10/23 22:00 Mucosa - Nose SARS-CoV-2, Influenza & RSV (PCR) - Final Imaging Radiology Impression Chest X-Ray 10/10/23 21:50 IMPRESSION: No active disease. Cardiomegaly. Electronically Signed: Tra Gil MD at 22:10 EST , Brain MRI 10/10/23 23:34 IMPRESSION: 1. Involutional and chronic ischemic changes of the brain, as described above. Electronically Signed: Christiano Keen MD at 12:31 EST , Carotid Duplex 10/10/23 23:34 Interpretation Summary Mild (<50%) stenosis right extracranial internal carotid. Mild (<50%) stenosis left extracranial internal carotid. Patent and antegrade vertebrals bilaterally. Ordering Physician: Anjel Hammer Referring Physician: Nanci Mead M.D. Performed By: Clayton Perez RVT Echocardiogram 10/10/23 23:34 Interpretation Summary The estimated ejection fraction is 65 %. No evidence for diastolic dysfunction. Mild (1+) aortic valve insufficiency. Ordering Physician: Anjel Hammer Referring Physician: Nanci Mead Performed By: Ruth Hurtado RDCS, RVT Active Medications Active Medications Active Medications: Current Medications Generic Name Dose Route Start Last Admin Trade Name Rolyq PRN Reason Stop Dose Admin Aspirin 81 mg 10/11/23 08:00 10/11/23 09:32 Aspirin 81 Mg Tab.Chew PO Not Given DAILY@0800 [facility] Atorvastatin Calcium 40 mg 10/11/23 22:00 10/11/23 19:57 Atorvastatin Calcium 40 Mg Tablet PO 40 mg QHS JOSE Administration Cyanocobalamin 1,000 mcg 10/11/23 10:00 10/11/23 09:32 Cyanocobalamin 500 Mcg Tablet PO Not Given DAILY JOSE Donepezil HCl 10 mg 10/11/23 22:00 10/11/23 19:57 Donepezil Hcl 10 Mg Tablet PO 10 mg QHS [facility] Administration Duloxetine HCl 30 mg 10/11/23 22:00 10/11/23 19:57 Duloxetine Hcl 30 Mg Capsule PO 30 mg QHS JOSE Administration Duloxetine HCl 60 mg 10/11/23 10:00 10/11/23 09:32 Duloxetine Hcl 60 Mg Capsule PO Not Given DAILY [facility] Enoxaparin Sodium 40 mg 10/11/23 10:00 10/11/23 09:33 Enoxaparin 40 Mg/0.4 Ml Syringe SC 40 mg DAILY JOSE Administration Lactobacillus Acidophilus 1 tablet 10/11/23 10:00 10/11/23 09:32 Lactobacillus Acidophilus PO Not Given DAILY JOSE Lisinopril 40 mg 10/12/23 10:00 Lisinopril 40 Mg Tablet PO DAILY [facility] Protocol Multivitamins 1 tablet 10/11/23 08:00 10/11/23 09:32 Multivitamins,Therapeutic [facility]t [facility] Nortriptyline HCl 50 mg 10/11/23 22:00 10/11/23 19:57 Nortriptyline 25 Mg Capsule PO 50 mg QHS [facility] Administration Propranolol HCl 60 mg 10/12/23 10:00 Propranolol La 60 Mg Capsule PO DAILY [facility] Protocol Sodium Chloride 10 - 40 ml 10/11/23 00:53 0.9% Saline Lock 10 Ml Syringe IV UD PRN SALINE FLUSH
--- NOTE | 2023-10-12 07:53 | CASEMGMT ---
Addendum entered by Philomena Alcazar 10/12/23 09:32: JUAN spoke with family and they have decided they would like to take patient home. JUAN canceled referral to Acute Rehab. Philomena ZAPATA Original Note: JUAN was informed family would like Acute Rehab. JUAN made a referral this am. Philomena ZAPATA
[2023-10-12 08:20] VITALS: O2SAT 96
--- NOTE | 2023-10-12 09:03 | PCM.PN.HOSP ---
Reason for Visit Reason for Visit: Diagnoses Transient cerebral ischemic attack, unspecified (10/10/23) Altered mental status, unspecified (10/10/23) Subjective Subjective Feels well. Daughter states that patient was shaking and was confused afterwards. Never happened before. Objective Data Objective Data Vital Signs: Vital Signs Temp Pulse Resp BP Pulse Ox O2 Del Method O2 Flow Rate 36.1 C L 93 16 147/81 H 96 Room Air 2 10/11/23 21:00 10/11/23 21:00 10/11/23 21:00 10/11/23 21:00 10/11/23 21:00 10/12/23 07:50 10/11/23 07:33 Oxygen Flow Rate (L/min) 2 Oxygen Delivery Method Room Air Weight: 88 kg Body Mass Index (BMI) 30.4 Intake & Output: Intake and Output for Last 24 Hours 10/10/23 10/11/23 10/12/23 23:59 23:59 23:59 Intake Total 240 / 240 Output Total 400 / 800 600 / 600 Balance -400 / -560 -360 / -360 Lab / Micro Data 10/10/23 20:10 10/10/23 20:10 Micro: Microbiology 10/10/23 22:00 Mucosa - Nose SARS-CoV-2, Influenza & RSV (PCR) - Final Radiography Diagnostic Testing: Radiology Impression Brain MRI 10/10/23 23:34 IMPRESSION: 1. Involutional and chronic ischemic changes of the brain, as described above. Electronically Signed: Christiano Keen MD at 12:31 [facility] Reading Location ID and State: [address] [place] [address] , Service support , Carotid Duplex 10/10/23 23:34 Interpretation Summary Mild (<50%) stenosis right extracranial internal carotid. Mild (<50%) stenosis left extracranial internal carotid. Patent and antegrade vertebrals bilaterally. Ordering Physician: Anjel Hammer Referring Physician: Nanci Mead M.D. Performed By: Clayton Perez, RVT Echocardiogram 10/10/23 23:34 Interpretation Summary The estimated ejection fraction is 65 %. No evidence for diastolic dysfunction. Mild (1+) aortic valve insufficiency. Ordering Physician: Anjel Hammer Referring Physician: Nanci Mead Performed By: Ruth Hurtado RDCS, RVT Physical Exam Const alert and no apparent distress Resp normal respiratory effort and no retractions Neuro no focal motor deficits Sensorium / Orientation: awake Assessment & Plan Assessment/Plan (1) Brain TIA: (2) Acute alteration in mental status: PLAN: Plan Aphasia/Dysarthria CVA/TIA ruled out. MRI brain negative. Carotid US negative. UA negative for infection Suspect fluctuation of dementia due to unspecified reason. Though may have been some sundowning. Daughter states that the patient had been up longer than usual on the day of presentation. EEG performed but results pending. Patient having no active issues so I do not dissipate the EEG being positive. I would recommend the patient follow-up with neurology as outpatient to be evaluated to review EEG results. Chronic conditions: Chronic Dementia; on donepezil complicating #1 - Continue home regimen as previous. History of depression; on duloxetine and nortriptyline - Restart these agents when patient can safely tolerate oral intake. DM-2; of unknown control on Metformin - Hold Metformin for 72 hours with recent IV contrast dye. FSBS q. 6 hours plus SSI. Check HgbA1c. Essential hypertension - Allow for 'permissive hypertension' until CVA is definitively ruled out. hyperlipidemia - Resume statin when patient can tolerate oral intake. Obesity; with BMI of 36.6 this admission - Weight loss will be recommended. Check TSH in light of #1. Migraine headaches - Stable with no evidence of recurrence at this time. History of Left hip fracture - Noted. OA - Give Tylenol prn. DVT prophylaxis - Lovenox 40 mg sq daily plus SCD's.
[2023-10-12 09:41] VITALS: BP 152/69; PULSE 90; RESP 18; TEMP 36.6; O2SAT 94
[2023-10-12] MEDS: Multivitamins,Therapeutic Tablet 1 TABLET PO (09:42)
[2023-10-12] MEDS: Cyanocobalamin 500 MCG Tablet 1000 MCG PO (09:43)
[2023-10-12] MEDS: Enoxaparin 40 MG/0.4 ML Syringe SC (09:43)
[2023-10-12] MEDS: Aspirin 81 MG TAB.CHEW PO (09:43)
[2023-10-12] MEDS: Propranolol LA 60 MG Capsule PO (09:49)
[2023-10-12] MEDS: Lisinopril 40 MG Tablet PO (09:49)
--- NOTE | 2023-10-12 09:57 | NURSING ---
Pt daughter informed RN that she gave own home Cymbalta. This RN reinforced and educated daughter and patient not to take own home medications due to risk of double dosing or contraindications with other medications. Educated to take medication back home. notified.
--- NOTE | 2023-10-12 13:49 | CASEMGMT ---
RN CM in to discuss needs at discharge. RN CM spoke with daughter in room. Daughter states patient is back to her baseline and declines needs at discharge. Daughter had no further questions or concerns.
[2023-10-12 14:42] VITALS: BMI 30.4
[2023-10-12 16:00] VITALS: BP 159/80; PULSE 73; RESP 18; TEMP 36.6; O2SAT 99
--- NOTE | 2023-10-12 16:54 | DS.PCM_ITS ---
Providers Date of Admission: 10/10/23 Primary Care Physician: Dr. Nanci Mead, DO Consultations 10/11/23 00:35 Consult: Tele-Neurology Routine Consulting Provider: [facility] Reason for Consult: Acute Ischemic Stroke/TIA EMERGENT Consult: No MD Notified: Yes Date Notified: 10/11/23 Time Notified: 00:53 Method of Notification: Answering Service Method of Consult:: Telemedicine Nursing Unit Staff Notify [facility] of Tele-Neurology Consult: Yes Reason For Visit: CVA VS TIA Diagnosis Discharge Diagnosis (1) Brain TIA: Status: Acute Code(s): G45.9 - Transient cerebral ischemic attack, unspecified (2) Acute alteration in mental status: Status: Acute Code(s): R41.82 - Altered mental status, unspecified Plan Aphasia/Dysarthria * CVA/TIA ruled out. MRI brain negative. Carotid US negative. * UA negative for infection * Suspect fluctuation of dementia due to unspecified reason. Though may have been some sundowning. Daughter states that the patient had been up longer than usual on the day of presentation. * EEG performed but results pending. Patient having no active issues so I do not dissipate the EEG being positive. I would recommend the patient follow-up with neurology as outpatient to be evaluated to review EEG results. Chronic conditions: * Chronic Dementia; on donepezil complicating #1 - Continue home regimen as previous. * History of depression; on duloxetine and nortriptyline - Restart these agents when patient can safely tolerate oral intake. * DM-2; of unknown control on Metformin - Hold Metformin for 72 hours with recent IV contrast dye. FSBS q. 6 hours plus SSI. Check HgbA1c. * Essential hypertension - Allow for 'permissive hypertension' until CVA is definitively ruled out. * hyperlipidemia - Resume statin when patient can tolerate oral intake. * Obesity; with BMI of 36.6 this admission - Weight loss will be recommended. Check TSH in light of #1. * Migraine headaches - Stable with no evidence of recurrence at this time. * History of Left hip fracture - Noted. * OA - Give Tylenol prn. DVT prophylaxis - Lovenox 40 mg sq daily plus SCD's. Medications at Discharge Home Medications aspirin 81 mg chewable tablet 81 mg PO DAILY@0800 01/24/17 duloxetine 60 mg capsule,delayed release 60 mg PO DAILY 30 days 01/24/17 propranolol 60 mg capsule,24 hr,extended release 60 mg PO DAILY 01/24/17 ibuprofen 200 mg capsule 200 mg PO DAILY pain 01/27/20 metformin 500 mg tablet 1,000 mg PO DAILY diabetes 01/27/20 nortriptyline 50 mg capsule 50 mg PO QHS sleep 01/27/20 lisinopril 40 mg tablet 40 mg PO DAILY BP 08/15/21 L.acidophilus-B.animalis-B.bifidum 25 billion cell-FOS 100 mg capsule (Probiotic Complex) 1 cap PO DAILY 10/10/23 cyanocobalamin (vitamin B-12) 1,000 mcg tablet (Vitamin B-12) 1,000 mcg PO DAILY 10/10/23 donepezil 5 mg tablet 10 mg PO QHS 10/10/23 duloxetine 30 mg capsule,delayed release 30 mg PO QHS 10/10/23 multivitamin (Daily Multi-Vitamin tablet) 1 tab PO DAILY 10/10/23 Hospital Course Operations None Procedures Electroencephalogram Summary of Care Provided Minutes Spent on Discharge: 32 Weight / BMI Weight Weight: 88 kg Body Mass Index (BMI) 30.4 ABG / Lab / Microbiology Data 10/10/23 20:10 10/10/23 20:10 Microbiology: Microbiology 10/10/23 22:00 Mucosa - Nose SARS-CoV-2, Influenza & RSV (PCR) - Final D/C Instructions Discharge Diet: No restrictions Discharge Activity: May Not Drive Meaningful Use Info Meaningful Use Diagnoses (Choose all that apply): None applicable Discharge Plan Admission Admit Date/Time: 10/10/23 23:07 Primary Reason for Your Visit: Confusion Attending Provider: Deepak Lopez Primary Care Provider: Nanci Mead Consulting Providers: Ruel Catherine; Ruddy Stover; Diandra Encarnacion; Kendra Mcdermott; Myesha Wynne; Rasheed Albright; Leigh Emmanuel; Vito Hubbard; Benjamín Saavedra; Kathie Panda; Clark Cristobal; Yuridia Lantigua; Ranjana Birmingham; Vasquez Smith; Mason Gutierrez; Lior Powell; Jose Weiner; Debbie Pearson; Kaylan Salcedo; Anjel Hammer; Emily Arguello; Regis Moulton; Marino Capps; JULIA GUTIERRES; Kd Valerio; Emily Shankar Instructions Additional Instructions / Restrictions: You had an episode of confusion that was precipitated by some shaking spells. Is unclear what that may have been but our workup here was unremarkable. You did have an EEG, brainwave test, that result is still pending but I would like for you to follow-up with neurology to see if you do have a seizure disorder. If this recurs, notify your physician or return to the emergency room. Discharge Orders/Prescriptions Prescriptions: Continued propranolol 60 MG capsule 60 mg PO DAILY 0RF aspirin 81 MG tablet,chewable 81 mg PO DAILY@0800 0RF duloxetine 60 MG capsule 60 mg PO DAILY 30 Days 0RF ibuprofen 200 MG capsule 200 mg PO DAILY nortriptyline 50 MG capsule 50 mg PO QHS lisinopril 40 mg tablet 40 mg PO DAILY duloxetine 30 mg capsule,delayed release(DR/EC) 30 mg PO QHS Patient Comments: TAKE 1 CAPSULE BY MOUTH ONCE DAILY IN THE EVENING. TAKE ALONG WITH 60MG IN THE MORNING multivitamin [Daily Multi-Vitamin] Tablet 1 tab PO DAILY cyanocobalamin (vitamin B-12) [Vitamin B-12] 1,000 mcg tablet 1,000 mcg PO DAILY Probiotic Complex 25 billion cell -100 mg capsule 1 cap PO DAILY donepezil 5 MG tablet 10 mg PO QHS Held metformin 500 MG tablet 1,000 mg PO DAILY Hold Instructions: Resume on 10/15/23. Referrals / Follow Up: [facility] [Provider Group] - Within 1 Month Nanci Mead DO [Primary Care Provider] - Within 2 Weeks Disposition Disposition (needs filled in before D/C Order can be placed): Home, Self Care Charges/Coding Visit Charges Inpatient E&M: 37448 Disch Hosp >30min
== END 2023-10-12 16:57 | disposition home or self-care (01) ==
LOC: ED 20:29 → PCU 22:58
PROVIDERS: Admitting Provider Internal Medicine; Emergency Provider Emergency Medicine; PCP Internal Medicine
DX: G45.9 Transient cerebral ischemic attack, unspecified (principal); F03.90 Unspecified dementia, unspecified severity, without behavioral disturbance, psychotic disturbance, mood disturbance, and anxiety; E11.9 Type 2 diabetes mellitus without complications; E78.00 Pure hypercholesterolemia, unspecified; Z79.82 Long term (current) use of aspirin; R47.01 Aphasia; R41.82 Altered mental status, unspecified; I10 Essential (primary) hypertension; R47.1 Dysarthria and anarthria; I44.0 Atrioventricular block, first degree; Z79.899 Other long term (current) drug therapy; Z79.84 Long term (current) use of oral hypoglycemic drugs; E66.9 Obesity, unspecified; Z68.36 Body mass index [BMI] 36.0-36.9, adult; F32.A Depression, unspecified
CPT/HCPCS: 70450; 70496; 70498; 70551; 71045; 80048; 80061; 80076; 80307; 81001; 82140; 83690; 84443; 84484; 85025; 85610; 85730; 87631; 92526; 92610; 93005; 93306; 93880; 94762; 95819; 96372; 97162; 97166; 97530; 97535; 97802; 99221; 99285; P9612; Q9967; A4216; G0378

== ENCOUNTER → 2024-12-02 | Outpatient (CLI) | payer SELFPAY ==
[2024-12-02 10:30] LABS: Bacteria 0 SEEN /hpf (None Seen); Mucous, Urine 0 SEEN /hpf (<or=2+); Red Blood Cells-Urine 0 SEEN /hpf (0-5)
[2024-12-02 13:02] LABS: Color, Urine Yellow (Yellow); Glucose, Dipstick Normal (Normal); Ketone-Dipstick Negative (Negative); Leukocyte Esterase-Dipstick Negative /ul (Negative); Nitrite-Dipstick Negative (Negative); Occult Blood-Urine Negative /ul (Negative); Protein-Dipstick 15 mg/dl (Negative); Urine Bilirubin Dipstick Negative (Negative); Urine Clarity Clear (Clear); Urine Urobilinogen Normal (Normal)
[2024-12-02 13:04] LABS: Absolute Lymphocyte Count 2.26 X10^3/uL (0.83-4.51); Absolute Neutrophil Count 5.1 X10^3/uL (2.0-7.7); Basophil# 0.05 X10^3/uL; Basophil% 0.6 % (0-1); Eosinophil# 0.17 X10^3/uL; Hematocrit 36.6 % (37-47); Hemoglobin 12.3 g/dL (12.0-15.0); Lymphocyte # 2.26 X10^3/ul (0.83-4.51); Lymphocyte % 26.8 % (19-41); Mean Corp Hgb Conc 33.6 g/dL (32-36); Mean Corpuscular Hgb 31.3 pg (27.0-32.0); Mean Corpuscular Volume 93.1 fL (81-99); Mean Platelet Vol. 9.5 fl (6.2-12.0); Monocyte# 0.84 X10^3/uL; NRBC Flagged by Analyzer 0 % (0-5); Neutrophil # 5.09 X10^3/uL (2.7-7.7); Neutrophil % 60.4 % (47-70); Platelet Count 359 K/mm3 (150-450); RBC Distribution Width CV 14.2 % (11.6-14.6); RBC Distribution Width SD 48.5 fl (35.1-43.9); Red Blood Count 3.93 M/mm3 (4.2-5.4); White Blood Count 8.4 K/mm3 (4.4-11.0)
[2024-12-02 13:10] LABS: Squamous Epithelial Cells - UA 0-5 SEEN /hpf (5-10); White Blood Cells 0-5 SEEN /hpf (0-5)
[2024-12-02 13:12] LABS: Microalbumin,Random Urine 14.2 mg/L (NO RANGE EST.)
[2024-12-02 13:41] LABS: AST(SGOT) 18 U/L (<=31); Alanine Aminotransfer ALT/SGPT 13 U/L (<=34); Albumin, Serum 3.8 g/dL (3.4-4.8); Alkaline Phosphatase 44 U/L (35-104); Anion Gap 13 (5-15); BUN 22 mg/dL (4-19); BUN/Creat Ratio 27.7 RATIO (10-20); Calcium,Total 9.4 mg/dL (7.6-11.0); Carbon Dioxide 24.6 mmol/L (21.0-32.0); Chloride 98 mmol/L (98-108); Cholesterol 237 mg/dL (<=200); Creatinine, Serum 0.78 mg/dL (0.70-1.20); EST Glomerular Filtration Rate 74 (>60); Globulin 3.6 g/dL (2.2-4.2); Glucose 98 mg/dL (70-99); High Density Lipoprotein 60 mg/dL; Low Density Lipoprotein Calc. 151 mg/dL; Potassium 4.3 mmol/L (3.3-5.1); Protein, Total 7.4 g/dL (5.9-8.4); Sodium Level 136 mmol/L (133-145); Total Bilirubin 0.22 mg/dL (0.00-1.30); Triglycerides 133 mg/dL; Very Low Density Lipoprotein 27 mg/dL (5-40); Vitamin B12 365 pg/mL (180-914); Vitamin D,25 Hydroxy 26.1 ng/mL (30-100); cholesterol:hdl ratio screen 3.96
== END | disposition home or self-care (01) ==
PROVIDERS: PCP Internal Medicine; Referring Provider Internal Medicine; Visit Provider Internal Medicine
DX: E11.9 Type 2 diabetes mellitus without complications (principal); E78.00 Pure hypercholesterolemia, unspecified; E53.8 Deficiency of other specified B group vitamins; E55.9 Vitamin D deficiency, unspecified
CPT/HCPCS: 36415; 80053; 80061; 81001; 82043; 82306; 82570; 82607; 84443; 85025